=== PATIENT | male | born 1980 | race Caucasian/White ===

== ENCOUNTER 2017-12-07 06:55 | Inpatient (IN) ==
[2017-12-07] MEDS ORDERED: 0.9 % Sodium Chloride 1,000 ML IVC ONE ×2 (07:04→09:42)
[2017-12-07 07:20] LABS: ABG Base Excess -9 mEq/L (-2 to 3); ABG HCO3 27 mEq/L (21-27); ABG Oxygen Saturation 63 % (95-98); ABG PCO2 147 mmHg (35-45); ABG PH 6.88 pH Units (7.32-7.45); ABG PO2 58 mmHg (85-104); ABG TCO2 32 mEq/L (20-26)
[2017-12-07 07:20] LABS: Basophils % 0.2 %; Eosinophils # 0.1 K/mcL (0.0-0.6); Eosinophils % 0.4 %; Hematocrit 41.2 % (37.5-50.1); Hemoglobin 13.1 g/dL (12.9-16.9); Immature Granulocytes % 0.9 % (0-4); Lymphocytes # 9.3 K/mcL (0.6-4.6); Lymphocytes % 54.9 %; Mean Corpuscular HGB Conc 31.8 g/dL (31.6-35.5); Mean Corpuscular Hemoglobin 28.6 pg (28.0-33.3); Monocytes % 5.9 %; Neutrophils # 6.4 K/mcL (1.6-8.9); Platelet Count 264 K/mcL (140-400); Red Blood Count 4.58 M/mcL (4.19-5.50); Red Cell Distribution Width 12.9 % (11.5-14.5); Segmented Neutrophils % 37.7 %
[2017-12-07] MEDS ORDERED: 0.9 % Sodium Chloride 1,000 ML ONE (07:25)
[2017-12-07] MEDS: Norepinephrine 4 MG in D5% in Water 250 ML IVC SCH ×2 (07:30→18:52)
[2017-12-07 07:37] LABS: Alanine Aminotransferase 171 Units/L (7-52); Albumin 3.5 g/dL (3.5-5.7); Albumin/Globulin Ratio 1.2 (1.1-2.2); Alkaline Phosphatase 66 Units/L (34-104); Aspartate Amino Transferase 75 Units/L (13-39); BUN/Creatinine Ratio 12 (6-26); Bilirubin,Direct 0.1 mg/dL (0.0-0.2); Bilirubin,Indirect 0.2 mg/dL (0.0-1.2); Bilirubin,Total 0.3 mg/dL (0.3-1.0); Blood Urea Nitrogen 15 mg/dL (8-23); Calcium 8.9 mg/dL (8.6-10.3); Carbon Dioxide 23 mEq/L (23-29); Chloride 98 mEq/L (98-107); Glucose 264 mg/dL (70-105); INR 1.1; Magnesium 2.8 mg/dL (1.6-2.6); Osmolality,Calculated 298 (280-300); Phosphorous 11.8 mg/dL (2.7-4.5); Potassium 4.9 mEq/L (3.5-5.1); Sodium 139 mEq/L (136-145); Total Protein 6.5 g/dL (6.4-8.9); eGFR For Non-African Americans 51 (> 60)
[2017-12-07 07:39] LABS: Activated Partial Thrombo Time 41.7 Seconds (26.0-36.0)
--- NOTE | 2017-12-07 07:40 | Emergency Department Note ---
Disposition Clinical Impression: Cardiorespiratory arrest, Acidosis, metabolic, Brain edema Disposition: Admitted As Inpatient Condition: Critical General Adult HPI - General Chief complaint: ED Cardiac Arrest/CPR Time Seen by Provider: 12/07/17 07:04 Source: EMS Limitations: other - History of Present Illness Pain Scale: 0 - Related Data Home Medications Medication Instructions Recorded Confirmed No Known Home Drugs 12/07/17 12/07/17 Allergies Allergy/AdvReac Type Severity Reaction Status Date / Time Unable to Assess Allergy Unverified 12/07/17 06:57 Past Medical History - Past Medical History Medical history: Reports: other Psychiatric history: Reports: other - Social History Smoking Status: Unknown if ever smoked Smokeless Tobacco Status: (unknown) Alcohol use: Reports: none Drug use: Reports: IV Drug Use Physical Exam - General Limitations: other General appearance: other Course Vital Signs Respiratory Rate 15 12/07/17 06:55 O2 Sat by Pulse Oximetry 90 12/07/17 06:55 Temperature 93.4 F L 12/07/17 10:58 Pulse Rate 99 12/07/17 10:58 Respiratory Rate 18 12/07/17 11:20 Blood Pressure 113/98 12/07/17 11:20 O2 Sat by Pulse Oximetry 95 12/07/17 11:20 Oxygen Delivery Oxygen Delivery Ventilator Medical Decision Making - Lab Data Result diagrams: 12/07/17 07:08 12/07/17 07:08 Lab Results 12/07/17 12/07/17 12/07/17 Range/Units 07:08 07:08 07:08 WBC 16.9 H (4.3-11.1) K/mcL RBC 4.58 (4.19-5.50) M/mcL Hgb 13.1 (12.9-16.9) g/dL Hct 41.2 (37.5-50.1) % MCV 90.0 (83.0-100.0) fL MCH 28.6 (28.0-33.3) pg MCHC 31.8 (31.6-35.5) g/dL RDW 12.9 (11.5-14.5) % Plt Count 264 (140-400) K/mcL MPV 11.0 (9.4-12.4) fL Immature Gran % 0.9 (0-4) % Seg Neutrophils % 37.7 % Lymphocytes % 54.9 % Monocytes % 5.9 % Eosinophils % 0.4 % Basophils % 0.2 % Neutrophils # 6.4 (1.6-8.9) K/mcL Lymphocytes # 9.3 H (0.6-4.6) K/mcL Monocytes # 1.0 (0.0-1.3) K/mcL Eosinophils # 0.1 (0.0-0.6) K/mcL Basophils # 0.0 (0.0-0.2) K/mcL Reactive Lymphocytes Present A (Not Present) PT 12.0 (9.4-12.1) Seconds INR 1.1 APTT 41.7 H (26.0-36.0) Seconds Sample Site ABG pH (7.32-7.45) pH Units ABG pCO2 (35-45) mmHg ABG pO2 (85-104) mmHg ABG HCO3 (21-27) mEq/L ABG Total CO2 (20-26) mEq/L ABG O2 Saturation (95-98) % ABG Base Excess (-2 to 3) mEq/L Martín Test Respiration Rate O2 Delivery Device Blood Gas Modality Inspired O2 (1-15=lpm ss27-101=%) Tidal Volume cc PEEP cm H2O Sodium 139 (136-145) mEq/L Potassium 4.9 (3.5-5.1) mEq/L Chloride 98 (98-107) mEq/L Carbon Dioxide 23 (23-29) mEq/L BUN 15 (8-23) mg/dL Creatinine 1.26 (0.70-1.30) mg/dL Est GFR ( Amer) > 60 (> 60) Est GFR (Non-Af Amer) 51 L (> 60) BUN/Creatinine Ratio 12 (6-26) Glucose 264 H (70-105) mg/dL Calculated Osmolality 298 (280-300) Lactic Acid (0.5-2.2) mmol/L Calcium 8.9 (8.6-10.3) mg/dL Phosphorus 11.8 H (2.7-4.5) mg/dL Magnesium 2.8 H (1.6-2.6) mg/dL Total Bilirubin 0.3 (0.3-1.0) mg/dL Direct Bilirubin 0.1 (0.0-0.2) mg/dL Indirect Bilirubin 0.2 (0.0-1.2) mg/dL AST 75 H (13-39) Units/L ALT 171 H (7-52) Units/L Alkaline Phosphatase 66 (34-104) Units/L Troponin I 0.36 H* (< 0.04) ng/mL Serum Total Protein 6.5 (6.4-8.9) g/dL Albumin 3.5 (3.5-5.7) g/dL Globulin 3.0 (2.4-3.5) g/dL Albumin/Globulin Ratio 1.2 (1.1-2.2) Urine Color (Yellow) Urine Clarity (Clear) Urine pH (5.0-8.0) pH Units Ur Specific Brandon (1.010-1.025) Urine Protein (Neg-Trace) mg/dL Urine Glucose (UA) (Normal) mg/dL Urine Ketones (Negative) mg/dL Urine Blood (Negative) Urine Nitrite (Negative) Urine Bilirubin (Negative) Urine Urobilinogen (Normal) mg/dL Ur Leukocyte Esterase (Negative) Urine Microscopic RBC (0-3) per hpf Urine Microscopic WBC (0-3) per hpf Ur Squamous Epith Cells (None-Few) per lpf Urine Bacteria (None-Few) per hpf Hyaline Casts (None-Few) per lpf Urine Sperm Salicylates (15.0-30.0) mg/dL Urine Opiates Screen (Fkzkui=086) ng/mL Acetaminophen (10-20) mcg/mL Ur Barbiturates Screen (Toafpz=745) ng/mL Ur Phencyclidine Scrn (Cutoff=25) ng/mL Ur Amphetamines Screen (Taxfqw=4519) ng/mL U Benzodiazepines Scrn (Vzwkdc=878) ng/mL Urine Cocaine Screen (Cutoff= 300) ng/mL U Marijuana (THC) Screen (Cutoff = 50) ng/mL Ur Drug Screen Interp Ethyl Alcohol (Less than 10) mg/dL 12/07/17 12/07/17 12/07/17 Range/Units 07:08 07:14 07:48 WBC (4.3-11.1) K/mcL RBC (4.19-5.50) M/mcL Hgb (12.9-16.9) g/dL Hct (37.5-50.1) % MCV (83.0-100.0) fL MCH (28.0-33.3) pg MCHC (31.6-35.5) g/dL RDW (11.5-14.5) % Plt Count (140-400) K/mcL MPV (9.4-12.4) fL Immature Gran % (0-4) % Seg Neutrophils % % Lymphocytes % % Monocytes % % Eosinophils % % Basophils % % Neutrophils # (1.6-8.9) K/mcL Lymphocytes # (0.6-4.6) K/mcL Monocytes # (0.0-1.3) K/mcL Eosinophils # (0.0-0.6) K/mcL Basophils # (0.0-0.2) K/mcL Reactive Lymphocytes (Not Present) PT (9.4-12.1) Seconds INR APTT (26.0-36.0) Seconds Sample Site L Brach ABG pH 6.88 L* (7.32-7.45) pH Units ABG pCO2 147 H* (35-45) mmHg ABG pO2 58 L (85-104) mmHg ABG HCO3 27 (21-27) mEq/L ABG Total CO2 32 H (20-26) mEq/L ABG O2 Saturation 63 L (95-98) % ABG Base Excess -9 L (-2 to 3) mEq/L Martín Test N/A Respiration Rate O2 Delivery Device Bagging Blood Gas Modality Inspired O2 100.0 (1-15=lpm [id number]=%) Tidal Volume cc PEEP cm H2O Sodium (136-145) mEq/L Potassium (3.5-5.1) mEq/L Chloride (98-107) mEq/L Carbon Dioxide (23-29) mEq/L BUN (8-23) mg/dL Creatinine (0.70-1.30) mg/dL Est GFR ( Amer) (> 60) Est GFR (Non-Af Amer) (> 60) BUN/Creatinine Ratio (6-26) Glucose (70-105) mg/dL Calculated Osmolality (280-300) Lactic Acid > 10.0 H* (0.5-2.2) mmol/L Calcium (8.6-10.3) mg/dL Phosphorus (2.7-4.5) mg/dL Magnesium (1.6-2.6) mg/dL Total Bilirubin (0.3-1.0) mg/dL Direct Bilirubin (0.0-0.2) mg/dL Indirect Bilirubin (0.0-1.2) mg/dL AST (13-39) Units/L ALT (7-52) Units/L Alkaline Phosphatase (34-104) Units/L Troponin I (< 0.04) ng/mL Serum Total Protein (6.4-8.9) g/dL Albumin (3.5-5.7) g/dL Globulin (2.4-3.5) g/dL Albumin/Globulin Ratio (1.1-2.2) Urine Color (Yellow) Urine Clarity (Clear) Urine pH (5.0-8.0) pH Units Ur Specific Brandon (1.010-1.025) Urine Protein (Neg-Trace) mg/dL Urine Glucose (UA) (Normal) mg/dL Urine Ketones (Negative) mg/dL Urine Blood (Negative) Urine Nitrite (Negative) Urine Bilirubin (Negative) Urine Urobilinogen (Normal) mg/dL Ur Leukocyte Esterase (Negative) Urine Microscopic RBC (0-3) per hpf Urine Microscopic WBC (0-3) per hpf Ur Squamous Epith Cells (None-Few) per lpf Urine Bacteria (None-Few) per hpf Hyaline Casts (None-Few) per lpf Urine Sperm Salicylates < 2.5 L (15.0-30.0) mg/dL Urine Opiates Screen (Cseprm=226) ng/mL Acetaminophen < 10 L (10-20) mcg/mL Ur Barbiturates Screen (Roheku=327) ng/mL Ur Phencyclidine Scrn (Cutoff=25) ng/mL Ur Amphetamines Screen (Rqrndj=3845) ng/mL U Benzodiazepines Scrn (Bhbbiv=767) ng/mL Urine Cocaine Screen (Cutoff= 300) ng/mL U Marijuana (THC) Screen (Cutoff = 50) ng/mL Ur Drug Screen Interp Ethyl Alcohol < 10 (Less than 10) mg/dL 12/07/17 12/07/17 12/07/17 Range/Units 08:43 08:52 09:29 WBC (4.3-11.1) K/mcL RBC (4.19-5.50) M/mcL Hgb (12.9-16.9) g/dL Hct (37.5-50.1) % MCV (83.0-100.0) fL MCH (28.0-33.3) pg MCHC (31.6-35.5) g/dL RDW (11.5-14.5) % Plt Count (140-400) K/mcL MPV (9.4-12.4) fL Immature Gran % (0-4) % Seg Neutrophils % % Lymphocytes % % Monocytes % % Eosinophils % % Basophils % % Neutrophils # (1.6-8.9) K/mcL Lymphocytes # (0.6-4.6) K/mcL Monocytes # (0.0-1.3) K/mcL Eosinophils # (0.0-0.6) K/mcL Basophils # (0.0-0.2) K/mcL Reactive Lymphocytes (Not Present) PT (9.4-12.1) Seconds INR APTT (26.0-36.0) Seconds Sample Site L Radial ABG pH 7.31 L D (7.32-7.45) pH Units ABG pCO2 54 H D (35-45) mmHg ABG pO2 64 L (85-104) mmHg ABG HCO3 27 (21-27) mEq/L ABG Total CO2 29 H (20-26) mEq/L ABG O2 Saturation 90 L (95-98) % ABG Base Excess 0 (-2 to 3) mEq/L Martín Test N/A Respiration Rate 20 O2 Delivery Device Adult Vent Blood Gas Modality PRVC Inspired O2 40.0 (1-15=lpm [id number]=%) Tidal Volume 400 cc PEEP 5 cm H2O Sodium (136-145) mEq/L Potassium (3.5-5.1) mEq/L Chloride (98-107) mEq/L Carbon Dioxide (23-29) mEq/L BUN (8-23) mg/dL Creatinine (0.70-1.30) mg/dL Est GFR ( Amer) (> 60) Est GFR (Non-Af Amer) (> 60) BUN/Creatinine Ratio (6-26) Glucose (70-105) mg/dL Calculated Osmolality (280-300) Lactic Acid (0.5-2.2) mmol/L Calcium (8.6-10.3) mg/dL Phosphorus (2.7-4.5) mg/dL Magnesium (1.6-2.6) mg/dL Total Bilirubin (0.3-1.0) mg/dL Direct Bilirubin (0.0-0.2) mg/dL Indirect Bilirubin (0.0-1.2) mg/dL AST (13-39) Units/L ALT (7-52) Units/L Alkaline Phosphatase (34-104) Units/L Troponin I (< 0.04) ng/mL Serum Total Protein (6.4-8.9) g/dL Albumin (3.5-5.7) g/dL Globulin (2.4-3.5) g/dL Albumin/Globulin Ratio (1.1-2.2) Urine Color Yellow (Yellow) Urine Clarity Cloudy A (Clear) Urine pH 7.0 (5.0-8.0) pH Units Ur Specific Brandon 1.017 (1.010-1.025) Urine Protein >=300 H (Neg-Trace) mg/dL Urine Glucose (UA) 100 H (Normal) mg/dL Urine Ketones Negative (Negative) mg/dL Urine Blood Large H (Negative) Urine Nitrite Negative (Negative) Urine Bilirubin Negative (Negative) Urine Urobilinogen Normal (Normal) mg/dL Ur Leukocyte Esterase Negative (Negative) Urine Microscopic RBC 30-50 H (0-3) per hpf Urine Microscopic WBC TNTC H (0-3) per hpf Ur Squamous Epith Cells Many H (None-Few) per lpf Urine Bacteria Few (None-Few) per hpf Hyaline Casts Moderate H (None-Few) per lpf Urine Sperm Present Salicylates (15.0-30.0) mg/dL Urine Opiates Screen Positive H (Mbludm=481) ng/mL Acetaminophen (10-20) mcg/mL Ur Barbiturates Screen Negative (Ddnypx=340) ng/mL Ur Phencyclidine Scrn Negative (Cutoff=25) ng/mL Ur Amphetamines Screen Negative (Qvxokh=5695) ng/mL U Benzodiazepines Scrn Negative (Iajupp=747) ng/mL Urine Cocaine Screen Negative (Cutoff= 300) ng/mL U Marijuana (THC) Screen Negative (Cutoff = 50) ng/mL Ur Drug Screen Interp See Below Ethyl Alcohol (Less than 10) mg/dL Critical Care Time Critical Care Time: Yes Total Critical Care Time: 60 Attestation: Critical care performed: Time is exclusive of separately billable procedures. Time includes: direct patient care, patient reassessment, coordination of patient care, interpretation of data (laboratory data, radiology data, and respiratory data), review of patient's medical records, medical consultation and documentation of patient care. Procedures included in critical care time: Procedures excluded from critical care time: Attestation Statement - Attestation Attestation: I examined this patient and my medical decision-making was reviewed with the Resident Physician. I agree with the documented findings, disposition and treatment plan as described except to the extent set forth below. Patient arrives to the ED in full arrest. Patient was an unwitnessed arrest at work. He was found laying on the floor with a needle in his arm. EMS provides all history. They did not know when he was last seen. He was found unresponsive at 610. Bystander CPR was initiated. They state he was in asystole the entire time. They were a basic crew. Patient received oxygenation by a bag valve mask with an oral airway. CPR by Praveen device. On arrival here CPR was continued. IV access was established. He was intubated. IO was placed in the left tibia by nursing staff. He received one ampule of epinephrine. On pulse check the patient with sinus tach with a pulse. Denies contractility by bedside ultrasound. Stabilization began. Patient receiving IV fluids at this time. He received 30 mics of push dose epinephrine. The Levophed started and currently running at 20. Bicarbonate drip. Initial pH was 6.8. Lactate is greater than 10. Pupils are fixed. At this time we are attempting to establish the patient's identity and notify family. CT is pending. Beginning hypothermia protocol. The rest of his labs are pending as well. Patient has a grim prognosis secondary to his unwitnessed arrest and downtime. Patient's repeat pH is 7.3. DC bicarbonate drip. ICU has been consult and evaluated the patient. Father has also been here. Admitted to ICU. I was present for the entire code and intubation. EKG has diffuse ST depressions. Patient began having several seizure activity prior to transfer to ICU. He was given 2 mg of Ativan. Keppra load ordered. Chest X-Ray 12/07/17 07:04 IMPRESSION: 1. Endotracheal tube tip above the izabela. 2. Enteric tube within the distal stomach. D/ / Kieran Robb MD / Kieran Robb MD Interpreting Provider: Kieran Robb MD Cervical Spine CT 12/07/17 07:34 IMPRESSION: No acute abnormality of the cervical spine. Fluid and debris within the nasopharynx. Soft tissue laceration and subcutaneous air within right chest wall. D/ / Jorge White MD / Jorge White MD Interpreting Provider: Jorge White MD Head CT 12/07/17 07:34 IMPRESSION: Findings could suggest generalized brain edema. Clinical correlation recommended. Findings called to Dr. Guido at 8:46 a.m. December 07, 2017 D/ / Tommy Real / Tommy Real Interpreting Provider: Tommy Real
[2017-12-07 07:41] LABS: Reactive Lymphocytes Present (Not Present)
--- NOTE | 2017-12-07 07:48 | Emergency Department Note ---
Disposition Clinical Impression: Cardiorespiratory arrest, Acidosis, metabolic, Brain edema Disposition: Admitted As Inpatient Condition: Critical Time of Disposition: 09:34 CPR HPI - General Chief Complaint: ED Cardiac Arrest/CPR Time Seen by Provider: 12/07/17 07:04 Source: EMS Limitations: other Nursing Notes Reviewed: Yes Vital Signs Reviewed: Yes - History of Present Illness HPI Narrative: 37yo male presents from work via EMS. Patient was found down in the bathroom at work with a needle in his arm. CPR was started by work personnel at 06:10. Per EMS, patient is a known drug abuser. Patient was placed on a Praveen device. No medications given in route; BLS squad. - Related Data Home Medications Medication Instructions Recorded Confirmed No Known Home Drugs 12/07/17 12/07/17 Allergies Allergy/AdvReac Type Severity Reaction Status Date / Time Unable to Assess Allergy Unverified 12/07/17 06:57 Review of Systems: As Per HPI Limitations: ROS unobtainable due to patients medical condition CPR PMH - Past Medical History Medical history: Reports: other Psychiatric history: Reports: other - Social History Smoking Status: Unknown if ever smoked Alcohol use: Reports: none Drug use: Reports: IV Drug Use Physical Exam Primary survey: Airway: Oral airway in place. Ventilation by bag valve mask. Breathing: Bilateral breath sounds equal. Circulation: Pulseless without CPR. Asystole rhythm. No external hemorrhaging. Disability: GCS 3. Exposure: No abrasions, lacerations, ecchymosis, or hematomas on the patient's scalp or face, trunk, extremities. Pinpoint puncture keys on patient's left UE consistent with IVDA. Secondary survey Vital Signs Reviewed General: Unresponsive, pulseless. HEENT: No facial asymmetry. Head is normocephalic and atraumatic. Pupils fixed, dilated appx 5mm. Nasal turbinates moist and pink without epistaxis. Oral mucosa dry. Dentition intact. Cardiovascular: Heart regular rate and rhythm without clicks, rubs, gallops, or murmurs. No JVD. PMI nondisplaced. Respiratory: Symmetric chest rise with bag valve mask. Abdomen: Abdomen is soft, nondistended. Musculoskeletal: No deformities of extremities. No step-offs or deformities of spinous processes. Neuro: GCS 3 - General Limitations: other General appearance: other Course Course Narrative: Patient arrives with Praveen device. Asystole arrest. Unreliable peripheral line present. IO placed in left tibial tubercle. Patient intubated during first round ACLS during which single dose ACLS epi and 3A bicarb resulted in a tachycardic rhythm with femoral pulses. Subxyphoid bedside cardiac echo with ultrasound showed cardiac contraction, no tamponade, no septal bowing. BP was hypotensive to systolic low 70's. Peripheral IV in BL UE obtained. BP supported by push dose epi while levophed was hung and iteratively increased as needed through a peripheral IV. ABG showed pH 6.87. BiCarb drip initiated. C- collar placed as patient was found down, CT head and C-spine pending. Bedside C XR showed appropriate ET and OG tube placement. Active cooling initiated. Remainder of labwork and imaging pending. EKG dated 12/07/2017 at 07:16 interpreted as sinus rhythm with rate of 74. OR 182, QRS 118, QTC 472. Diffuse ST depression. Incomplete right bundle branch block. No previous EKG for comparison. My attending spoke with patient's mother. She was made aware there was an incident at the patient's work; no additional details given. Mother is going to find transportation to this facility where we can sit and discuss the patient's situation. I discussed the patient with his father who is now bedside. Discussed the known presenting history, actions of resuscitation, CT head results, probable outlook. He left the ED to strip picker the patient's mother. 09:20 Discussed the patient with the . He was able to provide additional information. Patient was purple when found. 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 Patient was having shivering which could have also been seizure like activity. This was resistant to 2mg IV ativan. Loaded with Keppra 1g. Nuclear medicine perfusion brain scan delayed secondary to this movement. Vital Signs Respiratory Rate 15 12/07/17 06:55 O2 Sat by Pulse Oximetry 90 12/07/17 06:55 Temperature 93.4 F L 12/07/17 10:58 Pulse Rate 99 12/07/17 10:58 Respiratory Rate 18 12/07/17 11:20 Blood Pressure 113/98 12/07/17 11:20 O2 Sat by Pulse Oximetry 95 12/07/17 11:20 Oxygen Delivery Oxygen Delivery Ventilator Cardiac Arrest/CPR - Lab Data Result diagrams: 12/07/17 07:08 12/07/17 15:00 Lab Results 12/07/17 12/07/17 12/07/17 Range/Units 07:08 07:08 07:08 WBC 16.9 H (4.3-11.1) K/mcL RBC 4.58 (4.19-5.50) M/mcL Hgb 13.1 (12.9-16.9) g/dL Hct 41.2 (37.5-50.1) % MCV 90.0 (83.0-100.0) fL MCH 28.6 (28.0-33.3) pg MCHC 31.8 (31.6-35.5) g/dL RDW 12.9 (11.5-14.5) % Plt Count 264 (140-400) K/mcL MPV 11.0 (9.4-12.4) fL Immature Gran % 0.9 (0-4) % Seg Neutrophils % 37.7 % Lymphocytes % 54.9 % Monocytes % 5.9 % Eosinophils % 0.4 % Basophils % 0.2 % Neutrophils # 6.4 (1.6-8.9) K/mcL Lymphocytes # 9.3 H (0.6-4.6) K/mcL Monocytes # 1.0 (0.0-1.3) K/mcL Eosinophils # 0.1 (0.0-0.6) K/mcL Basophils # 0.0 (0.0-0.2) K/mcL Reactive Lymphocytes Present A (Not Present) PT 12.0 (9.4-12.1) Seconds INR 1.1 APTT 41.7 H (26.0-36.0) Seconds Sample Site ABG pH (7.32-7.45) pH Units ABG pCO2 (35-45) mmHg ABG pO2 (85-104) mmHg ABG HCO3 (21-27) mEq/L ABG Total CO2 (20-26) mEq/L ABG O2 Saturation (95-98) % ABG Base Excess (-2 to 3) mEq/L Martín Test Respiration Rate O2 Delivery Device Blood Gas Modality Inspired O2 (1-15=lpm [id number]=%) Tidal Volume cc PEEP cm H2O Sodium 139 (136-145) mEq/L Potassium 4.9 (3.5-5.1) mEq/L Chloride 98 (98-107) mEq/L Carbon Dioxide 23 (23-29) mEq/L BUN 15 (8-23) mg/dL Creatinine 1.26 (0.70-1.30) mg/dL Est GFR ( Amer) > 60 (> 60) Est GFR (Non-Af Amer) 51 L (> 60) BUN/Creatinine Ratio 12 (6-26) Glucose 264 H (70-105) mg/dL Calculated Osmolality 298 (280-300) Lactic Acid (0.5-2.2) mmol/L Calcium 8.9 (8.6-10.3) mg/dL Phosphorus 11.8 H (2.7-4.5) mg/dL Magnesium 2.8 H (1.6-2.6) mg/dL Total Bilirubin 0.3 (0.3-1.0) mg/dL Direct Bilirubin 0.1 (0.0-0.2) mg/dL Indirect Bilirubin 0.2 (0.0-1.2) mg/dL AST 75 H (13-39) Units/L ALT 171 H (7-52) Units/L Alkaline Phosphatase 66 (34-104) Units/L Troponin I 0.36 H* (< 0.04) ng/mL Serum Total Protein 6.5 (6.4-8.9) g/dL Albumin 3.5 (3.5-5.7) g/dL Globulin 3.0 (2.4-3.5) g/dL Albumin/Globulin Ratio 1.2 (1.1-2.2) Urine Color (Yellow) Urine Clarity (Clear) Urine pH (5.0-8.0) pH Units Ur Specific Upton (1.010-1.025) Urine Protein (Neg-Trace) mg/dL Urine Glucose (UA) (Normal) mg/dL Urine Ketones (Negative) mg/dL Urine Blood (Negative) Urine Nitrite (Negative) Urine Bilirubin (Negative) Urine Urobilinogen (Normal) mg/dL Ur Leukocyte Esterase (Negative) Urine Microscopic RBC (0-3) per hpf Urine Microscopic WBC (0-3) per hpf Ur Squamous Epith Cells (None-Few) per lpf Urine Bacteria (None-Few) per hpf Hyaline Casts (None-Few) per lpf Urine Sperm Salicylates (15.0-30.0) mg/dL Urine Opiates Screen (Thjmmi=641) ng/mL Acetaminophen (10-20) mcg/mL Ur Barbiturates Screen (Pczifh=775) ng/mL Ur Phencyclidine Scrn (Cutoff=25) ng/mL Ur Amphetamines Screen (Qzsfpa=1678) ng/mL U Benzodiazepines Scrn (Ctltsb=384) ng/mL Urine Cocaine Screen (Cutoff= 300) ng/mL U Marijuana (THC) Screen (Cutoff = 50) ng/mL Ur Drug Screen Interp Ethyl Alcohol (Less than 10) mg/dL 12/07/17 12/07/17 12/07/17 Range/Units 07:08 07:14 07:48 WBC (4.3-11.1) K/mcL RBC (4.19-5.50) M/mcL Hgb (12.9-16.9) g/dL Hct (37.5-50.1) % MCV (83.0-100.0) fL MCH (28.0-33.3) pg MCHC (31.6-35.5) g/dL RDW (11.5-14.5) % Plt Count (140-400) K/mcL MPV (9.4-12.4) fL Immature Gran % (0-4) % Seg Neutrophils % % Lymphocytes % % Monocytes % % Eosinophils % % Basophils % % Neutrophils # (1.6-8.9) K/mcL Lymphocytes # (0.6-4.6) K/mcL Monocytes # (0.0-1.3) K/mcL Eosinophils # (0.0-0.6) K/mcL Basophils # (0.0-0.2) K/mcL Reactive Lymphocytes (Not Present) PT (9.4-12.1) Seconds INR APTT (26.0-36.0) Seconds Sample Site L Brach ABG pH 6.88 L* (7.32-7.45) pH Units ABG pCO2 147 H* (35-45) mmHg ABG pO2 58 L (85-104) mmHg ABG HCO3 27 (21-27) mEq/L ABG Total CO2 32 H (20-26) mEq/L ABG O2 Saturation 63 L (95-98) % ABG Base Excess -9 L (-2 to 3) mEq/L Martín Test N/A Respiration Rate O2 Delivery Device Bagging Blood Gas Modality Inspired O2 100.0 (1-15=lpm [id number]=%) Tidal Volume cc PEEP cm H2O Sodium (136-145) mEq/L Potassium (3.5-5.1) mEq/L Chloride (98-107) mEq/L Carbon Dioxide (23-29) mEq/L BUN (8-23) mg/dL Creatinine (0.70-1.30) mg/dL Est GFR ( Amer) (> 60) Est GFR (Non-Af Amer) (> 60) BUN/Creatinine Ratio (6-26) Glucose (70-105) mg/dL Calculated Osmolality (280-300) Lactic Acid > 10.0 H* (0.5-2.2) mmol/L Calcium (8.6-10.3) mg/dL Phosphorus (2.7-4.5) mg/dL Magnesium (1.6-2.6) mg/dL Total Bilirubin (0.3-1.0) mg/dL Direct Bilirubin (0.0-0.2) mg/dL Indirect Bilirubin (0.0-1.2) mg/dL AST (13-39) Units/L ALT (7-52) Units/L Alkaline Phosphatase (34-104) Units/L Troponin I (< 0.04) ng/mL Serum Total Protein (6.4-8.9) g/dL Albumin (3.5-5.7) g/dL Globulin (2.4-3.5) g/dL Albumin/Globulin Ratio (1.1-2.2) Urine Color (Yellow) Urine Clarity (Clear) Urine pH (5.0-8.0) pH Units Ur Specific Upton (1.010-1.025) Urine Protein (Neg-Trace) mg/dL Urine Glucose (UA) (Normal) mg/dL Urine Ketones (Negative) mg/dL Urine Blood (Negative) Urine Nitrite (Negative) Urine Bilirubin (Negative) Urine Urobilinogen (Normal) mg/dL Ur Leukocyte Esterase (Negative) Urine Microscopic RBC (0-3) per hpf Urine Microscopic WBC (0-3) per hpf Ur Squamous Epith Cells (None-Few) per lpf Urine Bacteria (None-Few) per hpf Hyaline Casts (None-Few) per lpf Urine Sperm Salicylates < 2.5 L (15.0-30.0) mg/dL Urine Opiates Screen (Khpxsk=712) ng/mL Acetaminophen < 10 L (10-20) mcg/mL Ur Barbiturates Screen (Mfytgt=223) ng/mL Ur Phencyclidine Scrn (Cutoff=25) ng/mL Ur Amphetamines Screen (Nnezqh=9506) ng/mL U Benzodiazepines Scrn (Ydzgks=073) ng/mL Urine Cocaine Screen (Cutoff= 300) ng/mL U Marijuana (THC) Screen (Cutoff = 50) ng/mL Ur Drug Screen Interp Ethyl Alcohol < 10 (Less than 10) mg/dL 12/07/17 12/07/17 12/07/17 Range/Units 08:43 08:52 09:29 WBC (4.3-11.1) K/mcL RBC (4.19-5.50) M/mcL Hgb (12.9-16.9) g/dL Hct (37.5-50.1) % MCV (83.0-100.0) fL MCH (28.0-33.3) pg MCHC (31.6-35.5) g/dL RDW (11.5-14.5) % Plt Count (140-400) K/mcL MPV (9.4-12.4) fL Immature Gran % (0-4) % Seg Neutrophils % % Lymphocytes % % Monocytes % % Eosinophils % % Basophils % % Neutrophils # (1.6-8.9) K/mcL Lymphocytes # (0.6-4.6) K/mcL Monocytes # (0.0-1.3) K/mcL Eosinophils # (0.0-0.6) K/mcL Basophils # (0.0-0.2) K/mcL Reactive Lymphocytes (Not Present) PT (9.4-12.1) Seconds INR APTT (26.0-36.0) Seconds Sample Site L Radial ABG pH 7.31 L D (7.32-7.45) pH Units ABG pCO2 54 H D (35-45) mmHg ABG pO2 64 L (85-104) mmHg ABG HCO3 27 (21-27) mEq/L ABG Total CO2 29 H (20-26) mEq/L ABG O2 Saturation 90 L (95-98) % ABG Base Excess 0 (-2 to 3) mEq/L Martín Test N/A Respiration Rate 20 O2 Delivery Device Adult Vent Blood Gas Modality PRVC Inspired O2 40.0 (1-15=lpm [id number]=%) Tidal Volume 400 cc PEEP 5 cm H2O Sodium (136-145) mEq/L Potassium (3.5-5.1) mEq/L Chloride (98-107) mEq/L Carbon Dioxide (23-29) mEq/L BUN (8-23) mg/dL Creatinine (0.70-1.30) mg/dL Est GFR ( Amer) (> 60) Est GFR (Non-Af Amer) (> 60) BUN/Creatinine Ratio (6-26) Glucose (70-105) mg/dL Calculated Osmolality (280-300) Lactic Acid (0.5-2.2) mmol/L Calcium (8.6-10.3) mg/dL Phosphorus (2.7-4.5) mg/dL Magnesium (1.6-2.6) mg/dL Total Bilirubin (0.3-1.0) mg/dL Direct Bilirubin (0.0-0.2) mg/dL Indirect Bilirubin (0.0-1.2) mg/dL AST (13-39) Units/L ALT (7-52) Units/L Alkaline Phosphatase (34-104) Units/L Troponin I (< 0.04) ng/mL Serum Total Protein (6.4-8.9) g/dL Albumin (3.5-5.7) g/dL Globulin (2.4-3.5) g/dL Albumin/Globulin Ratio (1.1-2.2) Urine Color Yellow (Yellow) Urine Clarity Cloudy A (Clear) Urine pH 7.0 (5.0-8.0) pH Units Ur Specific Upton 1.017 (1.010-1.025) Urine Protein >=300 H (Neg-Trace) mg/dL Urine Glucose (UA) 100 H (Normal) mg/dL Urine Ketones Negative (Negative) mg/dL Urine Blood Large H (Negative) Urine Nitrite Negative (Negative) Urine Bilirubin Negative (Negative) Urine Urobilinogen Normal (Normal) mg/dL Ur Leukocyte Esterase Negative (Negative) Urine Microscopic RBC 30-50 H (0-3) per hpf Urine Microscopic WBC TNTC H (0-3) per hpf Ur Squamous Epith Cells Many H (None-Few) per lpf Urine Bacteria Few (None-Few) per hpf Hyaline Casts Moderate H (None-Few) per lpf Urine Sperm Present Salicylates (15.0-30.0) mg/dL Urine Opiates Screen Positive H (Tfygkc=366) ng/mL Acetaminophen (10-20) mcg/mL Ur Barbiturates Screen Negative (Xcdogu=448) ng/mL Ur Phencyclidine Scrn Negative (Cutoff=25) ng/mL Ur Amphetamines Screen Negative (Kcuhzt=0752) ng/mL U Benzodiazepines Scrn Negative (Tjrfpg=490) ng/mL Urine Cocaine Screen Negative (Cutoff= 300) ng/mL U Marijuana (THC) Screen Negative (Cutoff = 50) ng/mL Ur Drug Screen Interp See Below Ethyl Alcohol (Less than 10) mg/dL
--- NOTE | 2017-12-07 08:11 | Emergency Department Note ---
START Narrative - START START: Procedure Note: Endotracheal Intubation Date: 12/07/17 Time: 07:15 Indication: Respiratory failure/full code Resident: Dr. Ryan Copeland Attending: Dr. Cooper See Emergent indication due to full CODE. The patient was placed on a surveillance monitor including continuous pulse oximetry. No sedation medications used. Using a CMAC laryngoscope and a size 7.5 endotracheal tube with stylet, the patient was intubated on the 3rd attempt; difficult view due oral secretions on first two attemps and switched from CMAC to D blade, used BVM inbetween The stylet was removed and cuff balloon was inflated. Appropriate endotracheal tube position was confirmed by direct visualization of vocal cord passage, fogging of the tube, CO2 colometric indicator and symmetric breath sounds. The tube was secured at 22 cm at the lips. Post intubation chest x-ray is pending at this time.
[2017-12-07 08:14] LABS: Troponin I 0.36 ng/mL (< 0.04)
[2017-12-07 08:43] LABS: Acetaminophen < 10 mcg/mL (10-20); Ethanol < 10 mg/dL (Less than 10); Salicylate < 2.5 mg/dL (15.0-30.0)
[2017-12-07] MEDS: Sodium Bicarbonate 150 MEQ in D5% in Water 1,000 ML IVC SCH (09:00)
[2017-12-07 09:07] LABS: Bilirubin,Urine Negative (Negative); Blood,Urine Large (Negative); Clarity,Urine Cloudy (Clear); Color,Urine Yellow (Yellow); Glucose,Urine (UA) 100 mg/dL (Normal); Ketones,Urine Negative (Negative); Leukocyte Esterase,Urine Negative (Negative); Nitrite,Urine Negative (Negative); Protein,Urine >=300 mg/dL (Neg-Trace); Specific Gravity,Urine 1.017 (1.010-1.025); Urobilinogen,Urine Normal (Normal)
[2017-12-07 09:09] LABS: Bacteria,Urine Few per hpf (None-Few); Hyaline Casts,Urine Moderate per lpf (None-Few); RBC,Urine 30-50 per hpf (0-3); Squamous Epithelial Cell,Urine Many per lpf (None-Few); WBC,Urine TNTC per hpf (0-3)
[2017-12-07 09:19] LABS: Amphetamine Screen,Urine Negative ng/mL (Cutoff=1000); Barbiturate Screen,Urine Negative ng/mL (Cutoff=200); Benzodiazepines Screen,Urine Negative ng/mL (Cutoff=200); Cannabinoid Screen,Urine Negative ng/mL (Cutoff = 50); Cocaine Screen,Urine Negative ng/mL (Cutoff= 300); Opiate Screen,Urine Positive ng/mL (Cutoff=300); Phencyclidine Screen,Urine Negative ng/mL (Cutoff=25)
[2017-12-07 09:23] LABS: Sperm,Urine Present
[2017-12-07 09:35] LABS: ABG Base Excess 0 mEq/L (-2 to 3); ABG HCO3 27 mEq/L (21-27); ABG Oxygen Saturation 90 % (95-98); ABG PCO2 54 mmHg (35-45); ABG PH 7.31 pH Units (7.32-7.45); ABG PO2 64 mmHg (85-104); ABG TCO2 29 mEq/L (20-26); Blood Gas Modality PRVC; Blood Gas PEEP 5 cm H2O; Blood Gas Respiration Rate 20; Blood Gas VT 400 cc
[2017-12-07] MEDS: 0.9 % Sodium Chloride 1,000 ML IVC SCH ×3 (09:44→23:06)
[2017-12-07] MEDS ORDERED: *HR* LORazepam 2 MG/ML VIAL IVP ONE (09:48)
[2017-12-07] MEDS ORDERED: *HR* LORazepam 2 MG/ML VIAL ONE (09:51)
--- NOTE | 2017-12-07 09:53 | Pulmonology History & Physical ---
<Zaida Ma M - Last Filed: 12/07/17 11:07> History of Present Illness HPI: Mr. Torrez is a 37 year old male Medications and Allergies No Known Home Drugs 12/07/17 [History] Allergy/AdvReac Type Severity Reaction Status Date / Time Unable to Assess Allergy Unverified 12/07/17 06:57 All Systems: The remainder of the systems were reviewed and are negative Physical Examination Vital Signs: Vital Signs, Last 4 Hours Temp Pulse Resp BP Pulse Ox Pulse Ox Pulse Ox 12/07/17 11:01 18 95 12/07/17 10:57 20 113/98 12/07/17 10:45 101 20 80/59 94 12/07/17 10:30 100 20 103/57 94 12/07/17 10:15 98 20 143/99 92 12/07/17 10:00 98 20 152/108 95 12/07/17 09:45 102 20 99/54 94 12/07/17 09:35 20 92 12/07/17 09:30 92.5 F L 99 20 101/76 92 12/07/17 09:15 99 20 142/90 91 12/07/17 09:00 100 20 124/70 93 12/07/17 08:45 99 20 120/70 93 12/07/17 08:44 94 12/07/17 08:30 99 20 117/51 93 12/07/17 08:25 98 20 117/51 92 12/07/17 08:20 98 20 122/60 94 12/07/17 08:15 98 20 130/59 98 12/07/17 08:10 89 20 119/78 93 12/07/17 08:05 98 20 118/54 97 12/07/17 08:00 89 20 108/60 97 12/07/17 07:45 90 20 94 12/07/17 07:30 86 20 94/44 98 12/07/17 07:24 0 0 Pulse Ox Pulse Ox Pulse Ox Pulse Ox 12/07/17 11:01 12/07/17 10:57 12/07/17 10:45 12/07/17 10:30 12/07/17 10:15 12/07/17 10:00 12/07/17 09:45 12/07/17 09:35 12/07/17 09:30 12/07/17 09:15 10/20/18 09:00 12/07/17 08:45 12/07/17 08:44 12/07/17 08:30 12/07/17 08:25 12/07/17 08:20 12/07/17 08:15 12/07/17 08:10 12/07/17 08:05 12/07/17 08:00 12/07/17 07:45 12/07/17 07:30 12/07/17 07:24 60 98 100 99 Results - Laboratory Findings CBC and BMP: 12/07/17 07:08 12/07/17 07:08 ABG ABG pH 7.31 pH Units (7.32-7.45) L D 12/07/17 09:29 ABG pCO2 54 mmHg (35-45) H D 12/07/17 09:29 ABG pO2 64 mmHg (85-104) L 12/07/17 09:29 ABG O2 Saturation 90 % (95-98) L 12/07/17 09:29 PT/INR, D-dimer PT 12.0 Seconds (9.4-12.1) 12/07/17 07:08 Abnormal lab findings: Abnormal lab results WBC 16.9 K/mcL (4.3-11.1) H 12/07/17 07:08 Lymphocytes # 9.3 K/mcL (0.6-4.6) H 12/07/17 07:08 Reactive Lymphocytes Present (Not Present) A 12/07/17 07:08 APTT 41.7 Seconds (26.0-36.0) H 12/07/17 07:08 ABG pH 7.31 pH Units (7.32-7.45) L D 12/07/17 09:29 ABG pCO2 54 mmHg (35-45) H D 12/07/17 09:29 ABG pO2 64 mmHg (85-104) L 12/07/17 09:29 ABG Total CO2 29 mEq/L (20-26) H 12/07/17 09:29 ABG O2 Saturation 90 % (95-98) L 12/07/17 09:29 Est GFR (Non-Af Amer) 51 (> 60) L 12/07/17 07:08 Glucose 264 mg/dL (70-105) H 12/07/17 07:08 Lactic Acid > 10.0 mmol/L (0.5-2.2) H* 12/07/17 07:08 Phosphorus 11.8 mg/dL (2.7-4.5) H 12/07/17 07:08 Magnesium 2.8 mg/dL (1.6-2.6) H 12/07/17 07:08 AST 75 Units/L (13-39) H 12/07/17 07:08 ALT 171 Units/L (7-52) H 12/07/17 07:08 Troponin I 0.36 ng/mL (< 0.04) H* 12/07/17 07:08 Urine Clarity Cloudy (Clear) A 12/07/17 08:52 Urine Protein >=300 mg/dL (Neg-Trace) H 12/07/17 08:52 Urine Glucose (UA) 100 mg/dL (Normal) H 12/07/17 08:52 Urine Blood Large (Negative) H 12/07/17 08:52 Urine Microscopic RBC 30-50 per hpf (0-3) H 12/07/17 08:52 Urine Microscopic WBC TNTC per hpf (0-3) H 12/07/17 08:52 Ur Squamous Epith Cells Many per lpf (None-Few) H 12/07/17 08:52 Hyaline Casts Moderate per lpf (None-Few) H 12/07/17 08:52 Salicylates < 2.5 mg/dL (15.0-30.0) L 12/07/17 07:48 Urine Opiates Screen Positive ng/mL ([id number]) H 12/07/17 08:43 Acetaminophen < 10 mcg/mL (10-20) L 12/07/17 07:48 - Attending Attestation I examined this patient and my medical decision-making was reviewed with the Resident Physician. I agree with the documented findings, disposition and treatment plan as described except to the extent set forth below. Patient seen and examined. Labs, radiology, chart personally reviewed. I was called by emergency room physician regarding this patient and patient was evaluated in the emergency room. 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 Caloric testing was done with cold ice with no response. Unfortunately patient is in stable for apnea test, a quick spontaneou s breathing trial was done and patient is apneic. This is all suggestive post cardiac arrest neurological changes and prognosis is very poor with evidence of suspect brain and to confirm that nuclear brain perfusion flow has been ordered and neurology consultation. Patient may need mannitol. Pulmonary: Patient with evidence of combined metabolic and respiratory acidosis and I have made some changes on the ventilator. Cardiovascular: Post cardiac arrest shock and patient is on vasopressor. GI: Nutrition per dietary and GI prophylaxis per routine Heme: DVT prophylaxis per routine Renal; urine out put and renal funtion reviewed. Suspect there is intravascular volume depletion and continue volume resuscitation and since there is correction partially open his acid base to discontinue further bicarbonate. Endorcine: blood glucose is monitored Lines: all lines checked and no evidence of infections Skin: skin care to prevent pressure ulcers per nursing routine care Prognosis is extremely poor and family is aware. Staff to notify organ donation team. I spent 45 min of Critical Care time with this patient. It involved decision making of high complexity to assess, manipulate, and support vital organ system failure and/or to prevent further life threatening deterioration of the patient's condition. The time involved in the performance of separately reportable procedures was not counted toward critical care time. <Ryan Mckeon R - Last Filed: 12/07/17 14:20> Date of Encounter: 12/07/17 Time of Encounter: 09:48 Assessment and Plan (1) Brain edema Current visit: Yes Status: Acute Patient remains unresponsive to verbal commands and pain stimuli. Patient is intubated and ventilated without sedation. Brainstem reflexes tested and absent. Head CT with findings consistent with generalized brain edema, loss of fraga- white differentiation, generalized swelling with small ventricles and sulci. Patient was found unresponsive at place of work with a needle in his arm, patient was unresponsive, and in asystole by BLS examination. Estimated down time prior to bystander initiated CPR is 15-20 minutes. Due to physical exam and imaging findings patient prognosis for meaningful neurologic recovery is poor. Will stop cooling protocol and begin rewarming patient Patient has not been given paralytic by the ED. Severe anoxic brain injury in this patient is likely, will obtain nuclear medicine brain perfusion study with further recommendations pending findings. Consult to neurology, have spoken with Dr. Sol. Will obtain EEG per recommendation. Will consider contacting [facility] for possible organ donation pending imaging and clinical findings. (2) Cardiorespiratory arrest Current visit: Yes Status: Acute Patient was found unresponsive and bystander CPR was initiated. Downtime estimated to be 15-20 minutes. Patient was transported by [facility] EMS crew with Praveen device for CPR. Patient was intubated in the ED and given 1 amp of epinephrine. Subsequently patient was found to be in sinus tachycardia. Cooling protocol was initiated by the ED. This was subsequently stopped for rewarming when CT had demonstrated diffuse cerebral edema. At present patient is requiring ventilation as well as levophed vasopressor support. Bicarbonate drip has been stopped will initiate IV fluid resuscitation for organ perfusion, continue aggressive supportive measures at this time. (3) Hypotension Current visit: Yes Status: Acute Patient with persistent hypotension in the setting of recent cardiopulmonary arrest and resuscitation. Patient is receiving fluid resuscitation as well as requiring vasopressor support with Levophed. We will continue the vasopressor support as necessary to maintain map of greater than 65 for organ perfusion. We will continue IV fluids at this time, suspect patient is hypovolemic. Qualifiers: Hypotension type: unspecified hypotension type Qualified Code(s): I95.9 - Hypotension, unspecified (4) Acidosis, metabolic Current visit: Yes Status: Acute Patient with metabolic acidosis at presentation secondary to lactic acidosis due to cardiopulmonary arrest. ABG revealed pH of 6.88 as well as a lactate of greater than 10 and an anion gap of 18. Bicarbonate drip was started by the ED. PH by ABG is improving most recently 7.31. Have discontinued sodium bicarbonate infusion at this time. We will continue ventilation and fluid resuscitation for adequate oxygenation and organ perfusion (5) DVT prophylaxis Current visit: Yes Status: Acute Will initiate mechanical prophylaxis with bilateral SCDs History of Present Illness Chief complaint: Unresponsive HPI: Mr. Torrez is a 37 year old male with a history of intravenous drug abuse. The patient was seen and evaluated at the bedside in the ED. History was obtained from the chart and staff, no family present at the time of this evaluation. Patient was found in bathroom at his place of work this morning with a needle in his arm. He was unresponsive and found at approximately 6:10 AM. Bystander CPR was initiated until a S crew arrived for transport. Patient did receive CPR by Praveen device with respiratory support via oral airway and bag valve mask. Patient was in asystole throughout his transport. Patient was given epinephrine after presenting to the emergency department. Subsequently patient was found to be in sinus tach. Patient was intubated in the emergency department without sedation. Labs revealed a lactate of greater than 10 and initial pH of 6.8. Urine drug screen was obtained and found to be positive for urine opiates. CT head with findings consistent with diffuse cerebral edema. Patient was started on hypothermia protocol in the ED, this has now been stopped and will begin rewarming patient. Past Med Surg Social Fam HX - Past Medical History Medical history: other Additional medical history: unknown Psychiatric history: other - Past Surgical History Additional surgical history: unknown - Social History Smoking Status: Unknown if ever smoked Smokeless Tobacco Status: (unknown) Alcohol use: none Drug use: IV Drug Use ROS unobtainable: due to endotracheal tube, due to mental status All Systems: The remainder of the systems were reviewed and are negative Physical Examination Vital Signs: Vital Signs, Last 4 Hours Temp Pulse Resp BP Pulse Ox Pulse Ox Pulse Ox 12/07/17 09:35 20 92 12/07/17 09:30 92.5 F L 99 20 101/76 92 12/07/17 09:15 99 20 142/90 91 12/07/17 09:00 100 20 124/70 93 12/07/17 08:45 99 20 120/70 93 12/07/17 08:44 94 12/07/17 08:30 99 20 117/51 93 12/07/17 08:25 98 20 117/51 92 12/07/17 08:20 98 20 122/60 94 12/07/17 08:15 98 20 130/59 98 12/07/17 08:10 89 20 119/78 93 12/07/17 08:05 98 20 118/54 97 12/07/17 08:00 89 20 108/60 97 12/07/17 07:45 90 20 94 12/07/17 07:30 86 20 94/44 98 12/07/17 07:24 0 0 12/07/17 06:57 0 F L 0 0 0/0 0 12/07/17 06:55 15 90 Pulse Ox Pulse Ox Pulse Ox Pulse Ox 12/07/17 09:35 12/07/17 09:30 12/07/17 09:15 12/07/17 09:00 12/07/17 08:45 12/07/17 08:44 12/07/17 08:30 12/07/17 08:25 12/07/17 08:20 12/07/17 08:15 12/07/17 08:10 12/07/17 08:05 12/07/17 08:00 12/07/17 07:45 12/07/17 07:30 12/07/17 07:24 60 98 100 99 12/07/17 06:57 12/07/17 06:55 General appearance: other (Unresponsive) Eyes: nonicteric ENT: oropharynx moist, other (Endotracheal tube in place) Neck: supple, no lymphadenopathy Effort: other (Ventilated) Inspection: normal Auscultation: bilateral: clear Percussion: bilateral: not dull Cardiovascular: other (Tachycardic with regular rhythm) Gastrointestinal: absent bowel sounds, soft, non-distended Integumentary: normal Extremities: no cyanosis, no edema, no clubbing, cool Musculoskeletal: no deformities Gait: normal posture unable to assess due to mental status, other (Pupils are fixed and dilated. Brain stem reflexes absent with no cough, corneal, or caloric reflex noted.) other (Unable to assess due to mental status) Results - Laboratory Findings CBC and BMP: 12/07/17 07:08 12/07/17 07:08 ABG ABG pH 7.31 pH Units (7.32-7.45) L D 12/07/17 09:29 ABG pCO2 54 mmHg (35-45) H D 12/07/17 09:29 ABG pO2 64 mmHg (85-104) L 12/07/17 09:29 ABG O2 Saturation 90 % (95-98) L 12/07/17 09:29 PT/INR, D-dimer PT 12.0 Seconds (9.4-12.1) 12/07/17 07:08 Abnormal lab findings: Abnormal lab results WBC 16.9 K/mcL (4.3-11.1) H 12/07/17 07:08 Lymphocytes # 9.3 K/mcL (0.6-4.6) H 12/07/17 07:08 Reactive Lymphocytes Present (Not Present) A 12/07/17 07:08 APTT 41.7 Seconds (26.0-36.0) H 12/07/17 07:08 ABG pH 7.31 pH Units (7.32-7.45) L D 12/07/17 09:29 ABG pCO2 54 mmHg (35-45) H D 12/07/17 09:29 ABG pO2 64 mmHg (85-104) L 12/07/17 09:29 ABG Total CO2 29 mEq/L (20-26) H 12/07/17 09:29 ABG O2 Saturation 90 % (95-98) L 12/07/17 09:29 Est GFR (Non-Af Amer) 51 (> 60) L 12/07/17 07:08 Glucose 264 mg/dL (70-105) H 12/07/17 07:08 Lactic Acid > 10.0 mmol/L (0.5-2.2) H* 12/07/17 07:08 Phosphorus 11.8 mg/dL (2.7-4.5) H 12/07/17 07:08 Magnesium 2.8 mg/dL (1.6-2.6) H 12/07/17 07:08 AST 75 Units/L (13-39) H 12/07/17 07:08 ALT 171 Units/L (7-52) H 12/07/17 07:08 Troponin I 0.36 ng/mL (< 0.04) H* 12/07/17 07:08 Urine Clarity Cloudy (Clear) A 12/07/17 08:52 Urine Protein >=300 mg/dL (Neg-Trace) H 12/07/17 08:52 Urine Glucose (UA) 100 mg/dL (Normal) H 12/07/17 08:52 Urine Blood Large (Negative) H 12/07/17 08:52 Urine Microscopic RBC 30-50 per hpf (0-3) H 12/07/17 08:52 Urine Microscopic WBC TNTC per hpf (0-3) H 12/07/17 08:52 Ur Squamous Epith Cells Many per lpf (None-Few) H 12/07/17 08:52 Hyaline Casts Moderate per lpf (None-Few) H 12/07/17 08:52 Salicylates < 2.5 mg/dL (15.0-30.0) L 12/07/17 07:48 Urine Opiates Screen Positive ng/mL ([id number]) H 12/07/17 08:43 Acetaminophen < 10 mcg/mL (10-20) L 12/07/17 07:48
[2017-12-07] MEDS ORDERED: levETIRAcetam 1,000 MG in 0.9 % Sodium Chloride 100 ML IVPB ONE (10:00)
[2017-12-07] MEDS ORDERED: Mannitol 25% vial 12.5 GM/50 ML VIAL IVP ONE (11:31)
[2017-12-07] MEDS ORDERED: Artificial Tears SOLN 15 ML BOTTLE BOTH EYES PRN (11:47)
[2017-12-07] MEDS ORDERED: Naloxone 0.4 MG/ML INJ IVP PRN (11:54)
[2017-12-07] MEDS ORDERED: MANNITOL IVPB ONE (12:00)
--- NOTE | 2017-12-07 13:06 | Procedure Note ---
<Zaida Ma - Last Filed: 12/07/17 13:14> Date of procedure: 12/07/17 Procedure: I examined this patient and my medical decision-making was reviewed with the Resident Physician. I agree with the documented findings, disposition and treatment plan as described except to the extent set forth below. I have personally supervised and assist resident placing central line without immediate complications <Ryan Mckeon - Last Filed: 12/07/17 14:03> Pre-op diagnosis: Hypotension Post-op diagnosis: same Procedure: A timeout was completed verifying correct patient, procedure, site, positioning and equipment. The patient was placed in a dependent position appropriate for central venous catheter placement based on the site to be cannulated, in this instance the right femoral vein. The patient's groin was prepped and draped in sterile fashion. The vein was cannulated with an introducer needle under ultrasound guidance. A guidewire was inserted into the right femoral vein without resistance, appropriate placement was visualized and confirmed by ultrasound. A 3 mm skin neck was made and the dilator was introduced over the guidewire. After dilation a triple-lumen 7-Lao central venous catheter was introduced over the guidewire via the Seldinger technique into the right femoral vein. Appropriate blood was returned and each of the catheter lumens were flushed with sterile saline. The catheter was secured into place with sutures and a sterile dressing was applied. Perfusion to the extremity distal to the point of catheter insertion was checked and found to be adequate. Dr. Ma was present for the entire procedure. Anesthesia: IV sedation Surgeon: Ryan Mckeon Was there an assistant golf professional present: Yes Parachute Rigger: Zaida Ma Estimated blood loss (cc): 10 Specimen: none Pathology: none sent Condition: critical Disposition: ICU
[2017-12-07] MEDS: Artificial Tears SOLN 15 ML BOTTLE BOTH EYES SCH ×4 (14:50→23:04)
[2017-12-07] MEDS ORDERED: Valproic Acid INJ 800 MG in 0.9 % Sodium Chloride 100 ML IVPB SCH (16:00)
[2017-12-07 16:26] LABS: BUN/Creatinine Ratio 16 (6-26); Blood Urea Nitrogen 22 mg/dL (6-20); Calcium 8.6 mg/dL (8.6-10.3); Carbon Dioxide 30 mEq/L (23-29); Chloride 104 mEq/L (98-107); Glucose 142 mg/dL (70-105); Osmolality,Calculated 296 (280-300); Potassium 3.9 mEq/L (3.5-5.1); Sodium 140 mEq/L (136-145); eGFR For Non-African Americans 58 (> 60)
--- NOTE | 2017-12-07 18:48 | Neurology - Consult Note ---
Date of Encounter: 12/07/17 Time of Encounter: 17:48 Assessment and Plan (1) Anoxic brain injury Current Visit: Yes Status: Acute This patient who seemed to have suffered cardiopulmonary arrest perhaps due to drug overdose?? CT scan shows significant cerebral edema as commonly seen with severe anoxic injury. On neurological examination patient do not have any brainstem reflexes EEG also did not show any seizure activity and seems to be consistent with electrocerebral silence that could be seen in the patient with severe anoxic brain injury. As it is less than 12 hours I would recommend we should give another 12 hours to see if there is any changes in his overall neurological status at the same time recommend doing brain flow studies to see if there is any evidence of cerebral circulation. Considering overall presentation and neurological examination patient prognosis is grave Discussed with the mother and family who is present at the bedside explained in detail and all understand, acknowledges and agrees with the plan History of Present Illness HPI: Mr. Torrez is a 37 year old male with a history of intravenous drug abuse in past , brought in by EMS, he was found in bathroom at his place of work this morning with a needle in his arm. He was unresponsive, Bystander CPR was initiated until a BLS crew arrived for transport. Patient did receive CPR , Pt was in asystole throughout the transport. Patient was given epinephrine in ER Subsequently patient was found to be in sinus tach. Patient was intubated in the emergency department without sedation. Labs revealed a lactate of greater than 10 and initial pH of 6.8. Urine drug screen was positive for opiates. CT head consistent with diffuse cerebral edema. Patient was started on hypothermia protocol in the ED, Patient is intubated and ventilated without sedation. Brainstem reflexes were absent at presentation, Patient remain intubated and is without sedation for the past several hours Past Med Surg Social Fam HX - Past Medical History Medical history: other Additional medical history: unknown Psychiatric history: other - Past Surgical History Additional surgical history: unknown - Social History Smoking Status: Unknown if ever smoked Smokeless Tobacco Status: (unknown) Alcohol use: none Drug use: IV Drug Use Medications and Allergies No Known Home Drugs 12/07/17 [History] Allergy/AdvReac Type Severity Reaction Status Date / Time Unable to Assess Allergy Unverified 12/07/17 06:57 ROS unobtainable: due to endotracheal tube All Systems: The remainder of the systems were reviewed and are negative Physical Examination - Vital Signs Vital Signs: Initial Vital Signs Resp Pulse Ox 15 90 12/07/17 06:55 12/07/17 06:55 - Exam Exam: Limited neurological examination as currently patient is unresponsive to any verbal stimuli. Patient temperature is 96.5. Patient is without any sedation more than 3 hours Pupils are fixed and dilated No corneal reflexes No gag reflex No spontaneous breathing No oculocephalic response No withdrawal to the deep pain Eqyuivocal toes toes bilaterally Results - Laboratory Findings CBC and BMP: 12/07/17 07:08 12/07/17 15:00 Abnormal lab findings: Abnormal lab results WBC 16.9 K/mcL (4.3-11.1) H 12/07/17 07:08 Lymphocytes # 9.3 K/mcL (0.6-4.6) H 12/07/17 07:08 Reactive Lymphocytes Present (Not Present) A 12/07/17 07:08 APTT 41.7 Seconds (26.0-36.0) H 12/07/17 07:08 ABG pH 7.31 pH Units (7.32-7.45) L D 12/07/17 09:29 ABG pCO2 54 mmHg (35-45) H D 12/07/17 09:29 ABG pO2 64 mmHg (85-104) L 12/07/17 09:29 ABG Total CO2 29 mEq/L (20-26) H 12/07/17 09:29 ABG O2 Saturation 90 % (95-98) L 12/07/17 09:29 Carbon Dioxide 30 mEq/L (23-29) H 12/07/17 15:00 BUN 22 mg/dL (6-20) H 12/07/17 15:00 Creatinine 1.37 mg/dL (0.70-1.30) H 12/07/17 15:00 Est GFR (Non-Af Amer) 58 (> 60) L 12/07/17 15:00 Glucose 142 mg/dL (70-105) H 12/07/17 15:00 POC Glucose 136 mg/dL (70-99) H 12/07/17 17:34 Phosphorus 11.8 mg/dL (2.7-4.5) H 12/07/17 07:08 Magnesium 2.8 mg/dL (1.6-2.6) H 12/07/17 07:08 AST 75 Units/L (13-39) H 12/07/17 07:08 ALT 171 Units/L (7-52) H 12/07/17 07:08 Troponin I 0.36 ng/mL (< 0.04) H* 12/07/17 07:08 Urine Clarity Cloudy (Clear) A 12/07/17 08:52 Urine Protein >=300 mg/dL (Neg-Trace) H 12/07/17 08:52 Urine Glucose (UA) 100 mg/dL (Normal) H 12/07/17 08:52 Urine Blood Large (Negative) H 12/07/17 08:52 Urine Microscopic RBC 30-50 per hpf (0-3) H 12/07/17 08:52 Urine Microscopic WBC TNTC per hpf (0-3) H 12/07/17 08:52 Ur Squamous Epith Cells Many per lpf (None-Few) H 12/07/17 08:52 Hyaline Casts Moderate per lpf (None-Few) H 12/07/17 08:52 Salicylates < 2.5 mg/dL (15.0-30.0) L 12/07/17 07:48 Urine Opiates Screen Positive ng/mL ([id number]) H 12/07/17 08:43 Acetaminophen < 10 mcg/mL (10-20) L 12/07/17 07:48 - Diagnostic Findings Additional findings: CT scan of the head shows diffuse cerebral edema Stat EEG shows, no brain wave Activity, no seizure activity, no response to any external stimuli Consistent with severe anoxic/hypoxic encephalopathy Consult Discharge Plan - Plan Referrals: NONE,PCP [Primary Care Provider] -
--- NOTE | 2017-12-07 19:02 | EEG/EMG/Oth Biometrics Report ---
EEG Procedure Report EEG Procedure: Routine EEG Procedure Note: This is a 21 channel digital EEG performed utilizing 1020 electrode placement system on a patient who is intubated unresponsive and is been off sedation. Technical description Patient has no predominant cerebral activity, requiring reading at 3 Hz, there i s no true background activity recorded at the same time no evidence of any paroxysmal activity neither any changes with external stimuli. No obvious seizure activity was recorded During the recording there are few pulse artifact noted predominantly in the frontal leads Photic stimulation did not elicit any significant response Clinical interpretation Significantly abnormal electroencephalogram. This EEG did not show any background activity, neither any changes without any external stimuli this pattern could be seen in a patient with diffuse cerebral dysfunction as could be seen with severe anoxic brain injury, consistent with electrocerebral silence Clinical correlation is suggested
[2017-12-07] MEDS: Chlorhexidine Rinse 15 ML MOUTHWASH MM SCH (19:49)
[2017-12-08] MEDS: Norepinephrine 4 MG in D5% in Water 250 ML IVC SCH ×3 (00:39→08:56)
[2017-12-08] MEDS: Sodium Bicarbonate 150 MEQ in D5% in Water 1,000 ML IVC SCH (03:09)
[2017-12-08] MEDS: Artificial Tears SOLN 15 ML BOTTLE BOTH EYES SCH ×4 (03:15→15:36)
[2017-12-08 04:54] LABS: Basophils # 0.1 K/mcL (0.0-0.2); Basophils % 0.3 %; Eosinophils # 0.1 K/mcL (0.0-0.6); Eosinophils % 0.6 %; Hematocrit 50.8 % (37.5-50.1); Immature Granulocytes % 0.2 % (0-4); Lymphocytes # 1.7 K/mcL (0.6-4.6); Lymphocytes % 11.3 %; Mean Corpuscular HGB Conc 33.5 g/dL (31.6-35.5); Mean Corpuscular Hemoglobin 28.6 pg (28.0-33.3); Mean Corpuscular Volume 85.4 fL (83.0-100.0); Mean Platelet Volume 10.6 fL (9.4-12.4); Monocytes # 0.6 K/mcL (0.0-1.3); Monocytes % 3.7 %; Neutrophils # 12.6 K/mcL (1.6-8.9); Platelet Count 254 K/mcL (140-400); Red Blood Count 5.95 M/mcL (4.19-5.50); Red Cell Distribution Width 13.6 % (11.5-14.5); Segmented Neutrophils % 83.9 %
[2017-12-08 04:55] LABS: VBG Ionized Calcium 1.11 mmol/L (1.15-1.35)
[2017-12-08 05:20] LABS: BUN/Creatinine Ratio 19 (6-26); Blood Urea Nitrogen 24 mg/dL (6-20); Calcium 8.7 mg/dL (8.6-10.3); Carbon Dioxide 28 mEq/L (23-29); Chloride 117 mEq/L (98-107); Glucose 125 mg/dL (70-105); Magnesium 2.2 mg/dL (1.6-2.6); Osmolality,Calculated 314 (280-300); Potassium 3.5 mEq/L (3.5-5.1); Sodium 149 mEq/L (136-145); eGFR For Non-African Americans > 60 (> 60)
[2017-12-08 05:54] LABS: ABG Base Excess 0 mEq/L (-2 to 3); ABG HCO3 27 mEq/L (21-27); ABG Oxygen Saturation 94 % (95-98); ABG PCO2 49 mmHg (35-45); ABG PH 7.34 pH Units (7.32-7.45); ABG PO2 76 mmHg (85-104); ABG TCO2 28 mEq/L (20-26); Blood Gas Modality PRVC; Blood Gas PEEP 8 cm H2O; Blood Gas Respiration Rate 18; Blood Gas VT 400 cc
--- NOTE | 2017-12-08 07:38 | Pulmonology Progress Note ---
<Zaida Ma M - Last Filed: 12/08/17 09:04> Objective PUL Vital signs: Last Vital Signs Temp 96.0 F L 12/08/17 06:00 Pulse 89 12/08/17 06:00 Resp 18 12/08/17 07:22 BP 104/65 12/08/17 07:22 Pulse Ox 91 12/08/17 07:22 Ventilator Settings Ventilator Settings: Ventilator Settings, Last 8 Hours Ventilator Tidal Volume 400 Setting Ventilator Tidal Volume 400 Setting Ventilator Tidal Volume 400 Setting Ventilator Tidal Volume 400 Setting Ventilator Tidal Volume 400 Setting Ventilator Tidal Volume 400 Setting Ventilator Tidal Volume 400 Setting Ventilator Tidal Volume 400 Setting Ventilator Tidal Volume 400 Setting Ventilator Respiratory Rate 18 Setting Ventilator Respiratory Rate 18 Setting Ventilator Respiratory Rate 18 Setting Ventilator Respiratory Rate 18 Setting Ventilator Respiratory Rate 18 Setting Ventilator Respiratory Rate 18 Setting Ventilator Respiratory Rate 18 Setting Ventilator Respiratory Rate 18 Setting Ventilator Respiratory Rate 18 Setting Actual Respiratory Rate 18 Actual Respiratory Rate 18 Actual Respiratory Rate 18 Actual Respiratory Rate 18 Actual Respiratory Rate 18 Actual Respiratory Rate 18 Actual Respiratory Rate 18 Actual Respiratory Rate 18 Positive End Expiratory 8 Pressure Positive End Expiratory 5 Pressure Positive End Expiratory 8 Pressure Positive End Expiratory 5 Pressure Positive End Expiratory 5 Pressure Positive End Expiratory 8 Pressure Positive End Expiratory 5 Pressure Positive End Expiratory 5 Pressure Positive End Expiratory 8 Pressure Peak Inspiratory Airway 30 Pressure Peak Inspiratory Airway 28 Pressure Peak Inspiratory Airway 28 Pressure Peak Inspiratory Airway 30 Pressure Peak Inspiratory Airway 27 Pressure Peak Inspiratory Airway 28 Pressure Peak Inspiratory Airway 28 Pressure Peak Inspiratory Airway 29 Pressure Results - Laboratory Findings CBC and BMP: 12/08/17 04:35 12/08/17 04:35 ABG ABG pH 7.34 pH Units (7.32-7.45) 12/08/17 05:51 ABG pCO2 49 mmHg (35-45) H 12/08/17 05:51 ABG pO2 76 mmHg (85-104) L 12/08/17 05:51 ABG O2 Saturation 94 % (95-98) L 12/08/17 05:51 PT/INR, D-dimer PT 12.0 Seconds (9.4-12.1) 12/07/17 07:08 Abnormal lab findings: Abnormal lab results WBC 15.0 K/mcL (4.3-11.1) H 12/08/17 04:35 RBC 5.95 M/mcL (4.19-5.50) H 12/08/17 04:35 Hgb 17.0 g/dL (12.9-16.9) H D 12/08/17 04:35 Hct 50.8 % (37.5-50.1) H 12/08/17 04:35 Neutrophils # 12.6 K/mcL (1.6-8.9) H 12/08/17 04:35 Reactive Lymphocytes Present (Not Present) A 12/07/17 07:08 APTT 41.7 Seconds (26.0-36.0) H 12/07/17 07:08 ABG pCO2 49 mmHg (35-45) H 12/08/17 05:51 ABG pO2 76 mmHg (85-104) L 12/08/17 05:51 ABG Total CO2 28 mEq/L (20-26) H 12/08/17 05:51 ABG O2 Saturation 94 % (95-98) L 12/08/17 05:51 Sodium 149 mEq/L (136-145) H D 12/08/17 04:35 Chloride 117 mEq/L (98-107) H 12/08/17 04:35 BUN 24 mg/dL (6-20) H 12/08/17 04:35 Glucose 125 mg/dL (70-105) H 12/08/17 04:35 POC Glucose 100 mg/dL (70-99) H 12/08/17 06:00 Calculated Osmolality 314 (280-300) H 12/08/17 04:35 Venous Ioniz Calcium 1.11 mmol/L (1.15-1.35) L 12/08/17 04:50 Phosphorus 11.8 mg/dL (2.7-4.5) H 12/07/17 07:08 AST 75 Units/L (13-39) H 12/07/17 07:08 ALT 171 Units/L (7-52) H 12/07/17 07:08 Troponin I 0.36 ng/mL (< 0.04) H* 12/07/17 07:08 Urine Clarity Cloudy (Clear) A 12/07/17 08:52 Urine Protein >=300 mg/dL (Neg-Trace) H 12/07/17 08:52 Urine Glucose (UA) 100 mg/dL (Normal) H 12/07/17 08:52 Urine Blood Large (Negative) H 12/07/17 08:52 Urine Microscopic RBC 30-50 per hpf (0-3) H 12/07/17 08:52 Urine Microscopic WBC TNTC per hpf (0-3) H 12/07/17 08:52 Ur Squamous Epith Cells Many per lpf (None-Few) H 12/07/17 08:52 Hyaline Casts Moderate per lpf (None-Few) H 12/07/17 08:52 Salicylates < 2.5 mg/dL (15.0-30.0) L 12/07/17 07:48 Urine Opiates Screen Positive ng/mL (Lvjipy=171) H 12/07/17 08:43 Acetaminophen < 10 mcg/mL (10-20) L 12/07/17 07:48 - Clinical Findings Intake & Output: Intake & Output 12/07/17 12/08/17 12/08/17 23:59 07:59 15:59 Intake Total 2078 / 2078 1457 / 1457 226 / 226 Output Total 2049 / 2049 600 / 600 Balance 857 / 857 226 / 226 Consult Discharge Plan - Plan Referrals: NONE,PCP [Primary Care Provider] - - Attending Attestation I examined this patient and my medical decision-making was reviewed with the Resident Physician. I agree with the documented findings, disposition and treatment plan as described except to the extent set forth below. Patient seen and examined. Labs, radiology, chart personally reviewed. Agree with resident's history and physical, assessment, plan with following comments: YARN REWINDER: Patient does not follows commands, examination has not significantly changed and still there is no brainstem reflexes and reviewed neurology recommendations and evaluation and appreciate their input. Patient to have nuclear flow study and continue supportive care at this time. Family is aware of the poor prognosis. Pulmonary: Acceptable oxygenation and ventilation. Patient is requiring higher FiO2 and higher PEEP and also increase tidal volume to keep PCO2 in the low side because of the brain edema. Cardiovascular: Patient with neurogenic shock and on vasopressors. GI: Nutrition per dietary and GI prophylaxis per routine Heme: DVT prophylaxis per routine Renal; urine out put and renal funtion reviewed. Patient to be on mildly dry side with preferably mild hyponatremia because of the brain edema and also higher FiO2 and PEEP requirement. Endorcine: blood glucose is monitored Lines: all lines checked and no evidence of infections Skin: skin care to prevent pressure ulcers per nursing routine care Once patient has brain flow study I suspect he will be brain and organ do [place] team to discuss with the family. I spent 35 min of Critical Care time with this patient. It involved decision making of high complexity to assess, manipulate, and support vital organ system failure and/or to prevent further life threatening deterioration of the patient's condition. The time involved in the performance of separately reportable procedures was not counted toward critical care time. <Ryan Mckeon R - Last Filed: 12/08/17 09:55> Date of Encounter: 12/08/17 Time of Encounter: 07:15 Assessment and Plan (1) Brain edema Current Visit: Yes Status: Acute Patient remains unresponsive to verbal commands and pain stimuli. Patient is intubated and ventilated without sedation. Brainstem reflexes tested and absent. Head CT with findings consistent with generalized brain edema, loss of fraga- white differentiation, generalized swelling with small ventricles and sulci. Patient was found unresponsive at place of work with a needle in his arm, patient was unresponsive, and in asystole by BLS examination. Estimated down time prior to bystander initiated CPR is 15-20 minutes. Due to physical exam and imaging findings patient prognosis for meaningful neurologic recovery is poor. Patient did have evidence of seizure activity yesterday. Treated cerebral edema and seizure activity with propofol and mannitol, adjusting ventilatory settings to keep PCO2 low, elevate head of bed for reduced intracranial pressure. Patient has been off propofol since yesterday afternoon with no further evidence of seizure activity. Severe anoxic brain injury is quite likely in this patient, will obtain nuclear medicine brain perfusion study today with further recommendations pending findings. This imaging was held yesterday due to recent urine opiate positive screen as well as propofol use. Patient has now had adequate time to clear the se substances given appropriate renal and hepatic function. EEG done yesterday did not reveal evidence of brain activity and was consistent with electrocerebral silence Neurology consultated, have spoken with Dr. Sol and was present during his evaluation yesterday, appreciate neurology recommendations (2) Anoxic brain injury Current Visit: Yes Status: Acute Suspected anoxic brain injury based on history, physical findings, and EEG Neurology recommendations appreciated, will obtain nuclear medicine perfusion study this morning. Will likely involve organ transplant team if imaging is consistent with brain . Treatment plan as outlined above (3) Cardiorespiratory arrest Current Visit: Yes Status: Acute Patient was found unresponsive and bystander CPR was initiated. Downtime estimated to be 15-20 minutes. Patient was transported by [facility] EMS crew with Praveen device for CPR. Patient was intubated in the ED and given 1 amp of epinephrine. Subsequently patient was found to be in sinus tachycardia. At present patient is requiring intubation and ventilation. Patient remained on Levophed overnight, mean arterial pressure is decreasing will add Chiki-Synephrine and titrate as needed (4) Hypotension Current Visit: Yes Status: Acute Patient with persistent hypotension in the setting of recent cardiopulmonary arrest and neurologic injury. Patient is receiving fluid resuscitation as well as requiring vasopressor support with Levophed. We will continue the vasopressor support as necessary to maintain map of greater than 65 for organ perfusion. We will continue IV fluids at this time, suspect patient is hypovolemic. Will add Chiki-Synephrine for additional support and titrate as necessary. Qualifiers: Hypotension type: unspecified hypotension type Qualified Code(s): I95.9 - Hypotension, unspecified (5) Acidosis, metabolic Current Visit: Yes Status: Acute Patient with metabolic acidosis at presentation secondary to lactic acidosis due to cardiopulmonary arrest. ABG revealed pH of 6.88 as well as a lactate of greater than 10 and an anion gap of 18. Bicarbonate drip was started by the ED. PH by ABG is improving most recently 7.34. Have discontinued sodium bicarbonate. We will continue ventilation and fluid resuscitation for adequate oxygenation and organ perfusion (6) Hypernatremia Current Visit: Yes Status: Acute Hypernatremic today with a sodium of 149, additionally chloride is 117. Suspect the patient remains on the dry side we will continue maintenance fluid for organ protection Would like to keep patient on the side of hypernatremia to help with reduction of cerebral edema. (7) DVT prophylaxis Current Visit: Yes Status: Acute Will initiate mechanical prophylaxis with bilateral SCDs Subjective Principal diagnosis: anoxic brain injury Interval history: Patient remains intubated and ventilated without sedation. No change in clinical status. Patient is unresponsive to verbal and physical stimuli. Objective PUL Vital signs: Last Vital Signs Temp 96.0 F L 12/08/17 06:00 Pulse 89 12/08/17 06:00 Resp 18 12/08/17 06:00 BP 104/65 12/08/17 06:00 Pulse Ox 90 12/08/17 06:00 General appearance: no acute distress, other Eyes: nonicteric, other (Fixed and dilated) ENT: oropharynx moist, other (Endotracheal tube in place) Neck: supple, no lymphadenopathy Effort: other (Ventilated) Auscultation: bilateral: clear, diminished breath sounds Percussion: bilateral: not dull Cardiovascular: other (Tachycardic with regular rhythm) Gastrointestinal: hypoactive bowel sounds, soft, non-distended Integumentary: normal Extremities: no cyanosis, no edema, no clubbing Musculoskeletal: no deformities Gait: normal posture unable to assess due to mental status other (Unable to assess due to mental status) Ventilator Settings Ventilator Settings: Ventilator Settings, Last 8 Hours Ventilator Tidal Volume 400 Setting Ventilator Tidal Volume 400 Setting Ventilator Tidal Volume 400 Setting Ventilator Tidal Volume 400 Setting Ventilator Tidal Volume 400 Setting Ventilator Tidal Volume 400 Setting Ventilator Tidal Volume 400 Setting Ventilator Tidal Volume 400 Setting Ventilator Tidal Volume 400 Setting Ventilator Tidal Volume 400 Setting Ventilator Respiratory Rate 18 Setting Ventilator Respiratory Rate 18 Setting Ventilator Respiratory Rate 18 Setting Ventilator Respiratory Rate 18 Setting Ventilator Respiratory Rate 18 Setting Ventilator Respiratory Rate 18 Setting Ventilator Respiratory Rate 18 Setting Ventilator Respiratory Rate 18 Setting Ventilator Respiratory Rate 18 Setting Ventilator Respiratory Rate 18 Setting Actual Respiratory Rate 18 Actual Respiratory Rate 18 Actual Respiratory Rate 18 Actual Respiratory Rate 18 Actual Respiratory Rate 18 Actual Respiratory Rate 18 Actual Respiratory Rate 18 Actual Respiratory Rate 18 Actual Respiratory Rate 18 Positive End Expiratory 5 Pressure Positive End Expiratory 8 Pressure Positive End Expiratory 5 Pressure Positive End Expiratory 5 Pressure Positive End Expiratory 8 Pressure Positive End Expiratory 5 Pressure Positive End Expiratory 5 Pressure Positive End Expiratory 8 Pressure Positive End Expiratory 5 Pressure Positive End Expiratory 5 Pressure Peak Inspiratory Airway 28 Pressure Peak Inspiratory Airway 28 Pressure Peak Inspiratory Airway 30 Pressure Peak Inspiratory Airway 27 Pressure Peak Inspiratory Airway 28 Pressure Peak Inspiratory Airway 28 Pressure Peak Inspiratory Airway 29 Pressure Peak Inspiratory Airway 29 Pressure Peak Inspiratory Airway 28 Pressure Results - Laboratory Findings CBC and BMP: 12/08/17 04:35 12/08/17 04:35 ABG ABG pH 7.34 pH Units (7.32-7.45) 12/08/17 05:51 ABG pCO2 49 mmHg (35-45) H 12/08/17 05:51 ABG pO2 76 mmHg (85-104) L 12/08/17 05:51 ABG O2 Saturation 94 % (95-98) L 12/08/17 05:51 PT/INR, D-dimer PT 12.0 Seconds (9.4-12.1) 12/07/17 07:08 Abnormal lab findings: Abnormal lab results WBC 15.0 K/mcL (4.3-11.1) H 12/08/17 04:35 RBC 5.95 M/mcL (4.19-5.50) H 12/08/17 04:35 Hgb 17.0 g/dL (12.9-16.9) H D 12/08/17 04:35 Hct 50.8 % (37.5-50.1) H 12/08/17 04:35 Neutrophils # 12.6 K/mcL (1.6-8.9) H 12/08/17 04:35 Reactive Lymphocytes Present (Not Present) A 12/07/17 07:08 APTT 41.7 Seconds (26.0-36.0) H 12/07/17 07:08 ABG pCO2 49 mmHg (35-45) H 12/08/17 05:51 ABG pO2 76 mmHg (85-104) L 12/08/17 05:51 ABG Total CO2 28 mEq/L (20-26) H 12/08/17 05:51 ABG O2 Saturation 94 % (95-98) L 12/08/17 05:51 Sodium 149 mEq/L (136-145) H D 12/08/17 04:35 Chloride 117 mEq/L (98-107) H 12/08/17 04:35 BUN 24 mg/dL (6-20) H 12/08/17 04:35 Glucose 125 mg/dL (70-105) H 12/08/17 04:35 POC Glucose 100 mg/dL (70-99) H 12/08/17 06:00 Calculated Osmolality 314 (280-300) H 12/08/17 04:35 Venous Ioniz Calcium 1.11 mmol/L (1.15-1.35) L 12/08/17 04:50 Phosphorus 11.8 mg/dL (2.7-4.5) H 12/07/17 07:08 AST 75 Units/L (13-39) H 12/07/17 07:08 ALT 171 Units/L (7-52) H 12/07/17 07:08 Troponin I 0.36 ng/mL (< 0.04) H* 12/07/17 07:08 Urine Clarity Cloudy (Clear) A 12/07/17 08:52 Urine Protein >=300 mg/dL (Neg-Trace) H 12/07/17 08:52 Urine Glucose (UA) 100 mg/dL (Normal) H 12/07/17 08:52 Urine Blood Large (Negative) H 12/07/17 08:52 Urine Microscopic RBC 30-50 per hpf (0-3) H 12/07/17 08:52 Urine Microscopic WBC TNTC per hpf (0-3) H 12/07/17 08:52 Ur Squamous Epith Cells Many per lpf (None-Few) H 12/07/17 08:52 Hyaline Casts Moderate per lpf (None-Few) H 12/07/17 08:52 Salicylates < 2.5 mg/dL (15.0-30.0) L 12/07/17 07:48 Urine Opiates Screen Positive ng/mL (Tflawx=656) H 12/07/17 08:43 Acetaminophen < 10 mcg/mL (10-20) L 12/07/17 07:48 - Clinical Findings Intake & Output: Intake & Output 12/07/17 12/07/17 12/08/17 15:59 23:59 07:59 Intake Total 2616 / 2616 2078 / 2078 457 / 457 Output Total 2500 / 2500 2049 / 2049 600 / 600 Balance 116 / 116 29 / 29 -143 / -143 Weight 72 kg
[2017-12-08] MEDS ORDERED: Potassium Chloride Elixir 20 MEQ/15 ML UDC GTUBE ONE (07:40)
[2017-12-08] MEDS: Ipratropium/Albuterol Neb 3 ML IH SCH ×3 (07:59→15:12)
[2017-12-08] MEDS: Chlorhexidine Rinse 15 ML MOUTHWASH MM SCH (08:19)
[2017-12-08] MEDS: 0.9 % Sodium Chloride 1,000 ML IVC SCH (08:20)
[2017-12-08] MEDS ORDERED: Ringers Solution, Lactated 1,000 ML IVC SCH (08:45)
[2017-12-08] MEDS ORDERED: Pantoprazole 40 MG VIAL IVP SCH (09:00)
[2017-12-08] MEDS: Phenylephrine 10 MG in D5% in Water 250 ML IVC SCH ×2 (09:57→13:26)
[2017-12-08] MEDS ORDERED: Norepinephrine 8 MG in D5% in Water 500 ML IVC SCH (10:55)
--- NOTE | 2017-12-08 13:22 | Death Note ---
<Ryan Mckeon R - Last Filed: 12/08/17 13:20> Pronouncement Note - Date and Time of Date of : 12/08/17 Time of : 11:16 - PCOD Preliminary cause of : Cardiorespiratory arrest - Summary Additional details: Marvin is a 37-year-old male who suffered cardiopulmonary arrest on 12/07/2017 at approximately 6 AM. Reports state that patient was a recovering known drug addict and that he was found in the restroom of his place of work with a needle in his arm. Estimated down time is between 15 and 20 minutes before bystander CPR was initiated. Patient did receive ACLS resuscitation with return of heartbeat. Patient has remained ventilator dependent without spontaneous breathing. Since resuscitation patient clinical status has remained unchanged with fixed and dilated pupils, negative gag, corneal, and cold caloric reflex testing. Confounding factors have been corrected including his initial acid- base disturbance, hypothermia, hypotension, and urine toxicology without change in clinical or neurologic status. No response to verbal or pain stimuli. No spontaneous breathing. Based on clinical findings patient was suspected to have suffered severe anoxic brain injury resulting in brain . This diagnosis was confirmed by nuclear medicine perfusion study today. This confirmatory report was generated at 11:16 AM today 12/08/2017. This time will be used to generate time of as this is the time at which brain was confirmed. At that time patient was on cardiopulmonary support including intubation and mechanical ventilation as well as vasopressor support. - Additional Data Confirmation of : pupils fixed and dilated, other (Brain diagnosed by exam findings of apnea, negative corneal, gag, and cold caloric reflexes as well as fixed and dilated pupils. Brain confirmed nuclear medicine perfusion studies.) Family: at bedside Additional persons at bedside: other (Bedside nurse) Attending/PCP notified?: Yes Attending physician: Zaida Ma MD Was code activated?: No (Patient has suffered brain , no cardiopulmonary arrest at the time of ) Autopsy requested?: No plan examiner notified?: No Organ bank notified?: Yes Advance directives: No <Zaida Ma - Last Filed: 12/08/17 18:14> Pronouncement Note - Summary Additional details: I examined this patient and my medical decision-making was reviewed with the Resident Physician. I agree with the documented findings, disposition and treatment plan as described except to the extent set forth below. - Additional Data Attending physician: Zaida Ma MD
[2017-12-08] MEDS ORDERED: *HR* Norepinephrine 4 MG/4 ML VIAL IVC ONE (13:59)
[2017-12-08] MEDS ORDERED: *HR* EPINEPHrine 1 MG/10 ML SYRINGE IVP ONE (13:59)
--- NOTE | 2017-12-08 14:16 | Electrocardiograph Report ---
[address] [place], [place] [address] Test Date: 2017-12-07 Pat Name: Marvin Torrez Department: [id number] Room: 09 Gender: M Director [employer]: : 1980 Requested By: Zaida Ma Order Number: [id number] Reading MD: Keren Guerrero Measurements Intervals [place] Rate: 74 P: 71 MS: 182 QRS: 92 QRSD: 118 T: 67 QT: 425 QTc: 472 Interpretive Statements Sinus rhythm Incomplete right bundle branch block Abnrm T, consider ischemia, anterolateral lds Electronically Signed On 12-08-2017 14:14:58 EDT by Keren Guerrero
--- NOTE | 2017-12-08 14:20 | Death Note ---
<Ryan Mckeon R - Last Filed: 12/08/17 14:18> Discharge Sum: Summary - Date and Time Date of admission: 12/07/17 09:35 Date of : 12/08/17 Time of : 11:16 - Summary Details: See pronouncement note - Additional Data Confirmation of as documented by pronouncing clinician: pupils fixed and dilated, other (Brain as diagnosed by exam findings and confirmed by nuclear medicine perfusion study) Family: at bedside Additional persons at bedside: other (Bedside nurse) Attending/PCP notified?: Yes Attending physician: Zaida Ma MD Was code activated?: No Autopsy requested?: No textile examiner notified?: No Organ bank notified?: Yes Advance directives: No Hospice patient?: No Discharge Sum: Diag - PCOD Probable Cause of : Cardiorespiratory arrest Discharge Sum: Prov - Provider Primary care physician: PCP NONE Admitting clinician: Zaida Ma Attending physician on admission: Zaida Ma Consults: 12/07/17 11:14 Consult to Neurology [CONS] Routine Consulting Provider: [facility] Reason for Consult: unresponsive, cerebral edema Call Completed: Yes 12/07/17 16:49 Consult to Interpret Exam [CONS] Routine Consulting Provider: Jaida Sol I Consult to Interpret Exam: Interpret EEG Pronouncing clinician: Ryan Mckeon <Zaida Ma - Last Filed: 12/08/17 18:13> Discharge Sum: Summary - Date and Time Date of admission: 12/07/17 09:35 - Additional Data Attending physician: Zaida Ma MD Discharge Sum: Prov - Provider Primary care physician: PCP NONE Consults: 12/07/17 11:14 Consult to Neurology [CONS] Routine Consulting Provider: [facility] Reason for Consult: unresponsive, cerebral edema Call Completed: Yes 12/07/17 16:49 Consult to Interpret Exam [CONS] Routine Consulting Provider: Jaida Sol I Consult to Interpret Exam: Interpret EEG - Attending Attestation I examined this patient and my medical decision-making was reviewed with the Resident Physician. I agree with the documented findings, disposition and treatment plan as described except to the extent set forth below. This is very unfortunate man was admitted after cardiac arrest secondary to significant history of illicit drug abuse and he was evaluated by neurologist and with clinical examination consistent of brain with absence of any brain stem reflexes and then confirmed by additional testing of brain flow, he was declared and LOOP team followed up with family after that.
[2017-12-08 15:33] VITALS: BP 104/66
--- NOTE | 2017-12-10 17:14 | Electrocardiograph Report ---
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
== END 2017-12-08 11:16 | disposition expired | DRG 169 ==
LOC: EMEROOARM 06:55 → ICNU 09:35 → MERGE 09:35 → ICNU 11:08
PROVIDERS: ADMIT Internal Medicine Pulmonary Disease; ATTEND Internal Medicine Pulmonary Disease

== ENCOUNTER 2017-12-08 14:39 | Inpatient (IN) ==
[2017-12-08] MEDS: Norepinephrine 8 MG in D5% in Water 500 ML IVC SCH ×2 (15:30→20:14)
[2017-12-08] MEDS ORDERED: Artificial Tears SOLN 15 ML BOTTLE BOTH EYES PRN (15:55)
[2017-12-08] MEDS ORDERED: Ipratropium/Albuterol Neb 3 ML IH SCH (16:00)
[2017-12-08 17:57] LABS: ABG Base Excess -3 mEq/L (-2 to 3); ABG HCO3 26 mEq/L (21-27); ABG Oxygen Saturation 91 % (95-98); ABG PCO2 60 mmHg (35-45); ABG PH 7.24 pH Units (7.32-7.45); ABG PO2 72 mmHg (85-104); ABG TCO2 27 mEq/L (20-26); Blood Gas Modality AF; Blood Gas PEEP 8 cm H2O; Blood Gas Respiration Rate 21; Blood Gas VT 450 cc
[2017-12-08] MEDS: Ringers Solution, Lactated 1,000 ML IVC SCH ×2 (18:39→19:59)
[2017-12-08] MEDS: Artificial Tears SOLN 15 ML BOTTLE BOTH EYES SCH ×3 (18:39→23:15)
[2017-12-08] MEDS ORDERED: 0.9 % Sodium Chloride 500 ML ONE (18:40)
[2017-12-08] MEDS: Phenylephrine 10 MG in D5% in Water 250 ML IVC SCH ×2 (18:43→19:28)
[2017-12-08 18:58] LABS: Albumin 2.6 g/dL (3.5-5.7); Bilirubin,Direct 0.1 mg/dL (0.0-0.2); Bilirubin,Indirect 0.3 mg/dL (0.0-1.2); Bilirubin,Total 0.4 mg/dL (0.3-1.0); Calcium 8.1 mg/dL (8.6-10.3); Globulin 2.7 g/dL (2.4-3.5); Magnesium 1.7 mg/dL (1.6-2.6); Phosphorous 2.6 mg/dL (2.7-4.5); Potassium 3.5 mEq/L (3.5-5.1); Total Protein 5.3 g/dL (6.4-8.9)
[2017-12-08 19:01] LABS: Troponin I 1.63 ng/mL (< 0.04)
[2017-12-08 19:15] LABS: Bilirubin,Urine Negative (Negative); Blood,Urine Small (Negative); Clarity,Urine Cloudy (Clear); Color,Urine Yellow (Yellow); Glucose,Urine (UA) Normal (Normal); Ketones,Urine Negative (Negative); Leukocyte Esterase,Urine Trace (Negative); Nitrite,Urine Negative (Negative); Protein,Urine 30 mg/dL (Neg-Trace); Urobilinogen,Urine Normal (Normal)
[2017-12-08] MEDS ORDERED: *HR* Dextrose 50 % in Water (Syg) 50 ML SYRINGE IVP ONE (19:15)
[2017-12-08] MEDS ORDERED: Insulin Human Regular 20 UNIT in 0.9 % Sodium Chloride 10 ML IV ONE (19:18)
[2017-12-08] MEDS ORDERED: *HR* EPINEPHrine 1 MG/10 ML SYRINGE ONE (19:23)
[2017-12-08] MEDS ORDERED: *HR* EPINEPHrine 1 MG/10 ML SYRINGE IVP ONE (19:24)
[2017-12-08] MEDS: Vasopressin 40 UNIT in D5% in Water 100 ML IV SCH (19:29)
[2017-12-08] MEDS: Albuterol 2.5 MG/3 ML NEBULIZER IH SCH ×2 (19:48→23:35)
[2017-12-08 19:49] LABS: Basophils % 0.5 %; Eosinophils # 0.2 K/mcL (0.0-0.6); Eosinophils % 2.8 %; Hematocrit 50.4 % (37.5-50.1); Immature Granulocytes % 0.3 % (0-4); Lymphocytes # 3.1 K/mcL (0.6-4.6); Lymphocytes % 39.1 %; Mean Corpuscular HGB Conc 31.7 g/dL (31.6-35.5); Mean Corpuscular Hemoglobin 28.3 pg (28.0-33.3); Mean Corpuscular Volume 89.2 fL (83.0-100.0); Mean Platelet Volume 11.3 fL (9.4-12.4); Monocytes # 0.3 K/mcL (0.0-1.3); Monocytes % 4.3 %; Platelet Count 187 K/mcL (140-400); Red Blood Count 5.65 M/mcL (4.19-5.50); Red Cell Distribution Width 13.9 % (11.5-14.5)
[2017-12-08 19:51] LABS: Neutrophils # 4.2 K/mcL (1.6-8.9)
[2017-12-08] MEDS: Phenylephrine 20 MG in D5% in Water 500 ML IVC SCH ×2 (20:12→23:11)
[2017-12-08 20:15] LABS: INR 1.4; Prothrombin Time 15.5 Seconds (9.4-12.1)
[2017-12-08 20:18] LABS: Activated Partial Thrombo Time 28.7 Seconds (26.0-36.0)
[2017-12-08 20:30] LABS: ABG Base Excess -4 mEq/L (-2 to 3); ABG HCO3 24 mEq/L (21-27); ABG Oxygen Saturation 63 % (95-98); ABG PCO2 56 mmHg (35-45); ABG PH 7.24 pH Units (7.32-7.45); ABG PO2 39 mmHg (85-104); ABG TCO2 26 mEq/L (20-26); Blood Gas Modality PRVC; Blood Gas PEEP 10 cm H2O; Blood Gas Respiration Rate 22; Blood Gas VT 500 cc
[2017-12-08] MEDS ORDERED: WATER IVP SCH (20:30)
[2017-12-08] MEDS ORDERED: LEVOTHYROXINE SODIUM IVP SCH (20:30)
[2017-12-08] MEDS ORDERED: D5 IVP SCH (20:30)
[2017-12-08 20:33] LABS: Platelet Clumps Few (Not Present)
[2017-12-08] MEDS: Levothyroxine Sodium 100 MCG VIAL IVP ONE (20:42)
[2017-12-08] MEDS: D5 IVP SCH (20:50)
[2017-12-08] MEDS: LEVOTHYROXINE SODIUM IVP SCH (20:50)
[2017-12-08] MEDS: WATER IVP SCH (20:50)
[2017-12-08] MEDS ORDERED: Chlorhexidine Rinse 15 ML MOUTHWASH MM SCH (21:00)
--- NOTE | 2017-12-08 21:55 | Procedure Note ---
<Pro Jaimes - Last Filed: 12/08/17 21:52> Date of procedure: 12/08/17 Pre-op diagnosis: shock Post-op diagnosis: same Procedure: A time-out was completed verifying correct patient, procedure, site, positioning, and special equipment if applicable. The patients left groin was prepped and draped in sterile fashion. 1% Lidocaine was used to anesthetize the area. A 18G Arrow arterial line was introduced into the femoral artery. The catheter was threaded over the guide wire and the needle was removed with appropriate pulsatile blood return. The catheter was then sutured in place to the skin and a sterile dressing applied. Perfusion to the extremity distal to the point of catheter insertion was checked and found to be adequate. Anesthesia: GETA Surgeon: Pro Jaimes Was there an assistant professor of anthropology present: Yes Concierge: Ryan Mckeon Estimated blood loss (cc): 5 Specimen: none Pathology: none sent Condition: other (brain loop patient) Disposition: ICU <Ana Vásquez - Last Filed: 12/09/17 17:38> Procedure: I was not present during the procedure
[2017-12-08 22:07] LABS: VBG Ionized Calcium 1.17 mmol/L (1.15-1.35)
[2017-12-08 22:11] LABS: Calcium 7.8 mg/dL (8.6-10.3); Magnesium 1.5 mg/dL (1.6-2.6); Phosphorous 2.9 mg/dL (2.7-4.5); Potassium 3.2 mEq/L (3.5-5.1)
[2017-12-08] MEDS: 0.9 % Sodium Chloride w KCl 20 MEQ/1,000 ML MLS IVC SCH (22:32)
[2017-12-08] MEDS: 0.45 % Sodium Chloride w/KCl 20 MEQ/1,000 ML MLS IVC SCH (22:32)
[2017-12-08 22:33] LABS: Basophils % 0.5 %; Eosinophils # 0.1 K/mcL (0.0-0.6); Eosinophils % 3.4 %; Hemoglobin 15.4 g/dL (12.9-16.9); Lymphocytes # 1.4 K/mcL (0.6-4.6); Lymphocytes % 34.5 %; Mean Corpuscular HGB Conc 32.1 g/dL (31.6-35.5); Mean Corpuscular Hemoglobin 28.6 pg (28.0-33.3); Mean Corpuscular Volume 89.1 fL (83.0-100.0); Mean Platelet Volume 11.6 fL (9.4-12.4); Monocytes # 0.4 K/mcL (0.0-1.3); Monocytes % 9.7 %; Red Blood Count 5.39 M/mcL (4.19-5.50); Red Cell Distribution Width 13.9 % (11.5-14.5); Segmented Neutrophils % 51.9 %
[2017-12-08] MEDS ORDERED: Calcium Chloride 1,000 MG in 0.9 % Sodium Chloride 100 ML IVPB ONE (22:52)
[2017-12-08 23:03] LABS: Neutrophils # 2.1 K/mcL (1.6-8.9)
[2017-12-08 23:04] LABS: Platelet Count 103 K/mcL (140-400)
[2017-12-08 23:09] LABS: ABG Base Excess -6 mEq/L (-2 to 3); ABG HCO3 22 mEq/L (21-27); ABG Oxygen Saturation 88 % (95-98); ABG PCO2 54 mmHg (35-45); ABG PH 7.22 pH Units (7.32-7.45); ABG PO2 66 mmHg (85-104); ABG TCO2 24 mEq/L (20-26); Blood Gas Modality ASSIST CONTROL; Blood Gas PEEP 10 cm H2O; Blood Gas Respiration Rate 22; Blood Gas VT 500 cc
[2017-12-08] MEDS: Piperacillin/Tazobactam 3.375 GM in 0.9 % Sodium Chloride Mini Bag 100 ML IVPB SCH (23:29)
[2017-12-09] MEDS ORDERED: Piperacillin/Tazobactam 3.375 GM in 0.9 % Sodium Chloride Mini Bag 100 ML IVPB SCH
[2017-12-09 00:32] LABS: ABG Base Excess -5 mEq/L (-2 to 3); ABG HCO3 22 mEq/L (21-27); ABG Oxygen Saturation 98 % (95-98); ABG PCO2 47 mmHg (35-45); ABG PH 7.28 pH Units (7.32-7.45); ABG PO2 109 mmHg (85-104); ABG TCO2 23 mEq/L (20-26); Blood Gas Modality PRVC; Blood Gas PEEP 10 cm H2O; Blood Gas Respiration Rate 24; Blood Gas VT 500 cc
[2017-12-09] MEDS: Norepinephrine 8 MG in D5% in Water 500 ML IVC SCH (00:47)
[2017-12-09 02:11] LABS: VBG Ionized Calcium 1.43 mmol/L (1.15-1.35)
[2017-12-09 02:18] LABS: INR 1.5; Prothrombin Time 16.8 Seconds (9.4-12.1)
[2017-12-09 02:22] LABS: Activated Partial Thrombo Time 31.5 Seconds (26.0-36.0)
[2017-12-09 02:38] LABS: Troponin I 0.62 ng/mL (< 0.04)
[2017-12-09 02:56] LABS: Amylase 134 Units/L (29-103); Lipase 5 Units/L (11-82)
[2017-12-09 02:57] LABS: Alanine Aminotransferase 265 Units/L (7-52); Albumin 2.5 g/dL (3.5-5.7); Albumin/Globulin Ratio 0.9 (1.1-2.2); Alkaline Phosphatase 63 Units/L (34-104); Aspartate Amino Transferase 130 Units/L (13-39); BUN/Creatinine Ratio 13 (6-26); Bilirubin,Direct 0.3 mg/dL (0.0-0.2); Bilirubin,Indirect 0.3 mg/dL (0.0-1.2); Bilirubin,Total 0.6 mg/dL (0.3-1.0); Blood Urea Nitrogen 19 mg/dL (6-20); Calcium 9.9 mg/dL (8.6-10.3); Carbon Dioxide 20 mEq/L (23-29); Chloride 114 mEq/L (98-107); Cholesterol 89 mg/dL (< 200); Gamma Glutamyl Transpeptidase 54 Units/L (2-30); Globulin 2.7 g/dL (2.4-3.5); Glucose 146 mg/dL (70-105); Magnesium 2.1 mg/dL (1.6-2.6); Osmolality,Calculated 297 (280-300); Phosphorous 3.2 mg/dL (2.7-4.5); Potassium 3.5 mEq/L (3.5-5.1); Sodium 141 mEq/L (136-145); Total Protein 5.2 g/dL (6.4-8.9); eGFR For Non-African Americans 55 (> 60)
[2017-12-09] MEDS: Artificial Tears SOLN 15 ML BOTTLE BOTH EYES SCH ×6 (03:35→21:46)
[2017-12-09] MEDS: Albuterol 2.5 MG/3 ML NEBULIZER IH SCH ×5 (03:42→20:17)
[2017-12-09] MEDS: 0.9 % Sodium Chloride w KCl 20 MEQ/1,000 ML MLS IVC SCH ×3 (03:46→22:57)
[2017-12-09] MEDS: 0.45 % Sodium Chloride w/KCl 20 MEQ/1,000 ML MLS IVC SCH ×3 (03:46→19:38)
[2017-12-09 03:56] LABS: ABG Base Excess -4 mEq/L (-2 to 3); ABG HCO3 23 mEq/L (21-27); ABG Oxygen Saturation 100 % (95-98); ABG PCO2 44 mmHg (35-45); ABG PH 7.32 pH Units (7.32-7.45); ABG PO2 210 mmHg (85-104); ABG TCO2 24 mEq/L (20-26); Blood Gas Modality PRVC; Blood Gas PEEP 10 cm H2O; Blood Gas Respiration Rate 24; Blood Gas VT 500 cc
[2017-12-09 05:35] LABS: VBG Ionized Calcium 1.22 mmol/L (1.15-1.35)
[2017-12-09] MEDS: Piperacillin/Tazobactam 3.375 GM in 0.9 % Sodium Chloride Mini Bag 100 ML IVPB SCH ×3 (05:38→21:45)
[2017-12-09 05:56] LABS: BUN/Creatinine Ratio 15 (6-26); Blood Urea Nitrogen 21 mg/dL (6-20); Carbon Dioxide 20 mEq/L (23-29); Chloride 111 mEq/L (98-107); Glucose 197 mg/dL (70-105); Magnesium 1.8 mg/dL (1.6-2.6); Osmolality,Calculated 298 (280-300); Phosphorous 3.7 mg/dL (2.7-4.5); Potassium 4.2 mEq/L (3.5-5.1); Sodium 140 mEq/L (136-145); eGFR For Non-African Americans 57 (> 60)
[2017-12-09 06:08] LABS: ABG Base Excess -3 mEq/L (-2 to 3); ABG HCO3 23 mEq/L (21-27); ABG Oxygen Saturation 99 % (95-98); ABG PCO2 43 mmHg (35-45); ABG PH 7.33 pH Units (7.32-7.45); ABG PO2 160 mmHg (85-104); ABG TCO2 24 mEq/L (20-26); Blood Gas Modality PRVC; Blood Gas PEEP 10 cm H2O; Blood Gas Respiration Rate 24; Blood Gas VT 500 cc
[2017-12-09] MEDS: D5 IVP SCH ×2 (06:14→18:15)
[2017-12-09] MEDS: LEVOTHYROXINE SODIUM IVP SCH ×2 (06:14→18:15)
[2017-12-09] MEDS: WATER IVP SCH ×2 (06:14→18:15)
[2017-12-09] MEDS: Ringers Solution, Lactated 1,000 ML IVC SCH ×3 (08:09→22:27)
[2017-12-09 08:14] LABS: ABG Base Excess -3 mEq/L (-2 to 3); ABG HCO3 23 mEq/L (21-27); ABG Oxygen Saturation 99 % (95-98); ABG PCO2 44 mmHg (35-45); ABG PH 7.33 pH Units (7.32-7.45); ABG PO2 124 mmHg (85-104); ABG TCO2 25 mEq/L (20-26); Blood Gas Modality VC; Blood Gas PEEP 10 cm H2O; Blood Gas Respiration Rate 24; Blood Gas VT 500 cc
[2017-12-09 08:49] LABS: Hematocrit 41.1 % (37.5-50.1); Mean Corpuscular HGB Conc 32.8 g/dL (31.6-35.5); Mean Corpuscular Hemoglobin 28.4 pg (28.0-33.3); Mean Corpuscular Volume 86.3 fL (83.0-100.0); Mean Platelet Volume 11.4 fL (9.4-12.4); Platelet Count 138 K/mcL (140-400); Red Blood Count 4.76 M/mcL (4.19-5.50); Red Cell Distribution Width 13.6 % (11.5-14.5)
[2017-12-09 08:50] LABS: VBG Ionized Calcium 1.21 mmol/L (1.15-1.35)
[2017-12-09 08:54] LABS: Hemoglobin 13.5 g/dL (12.9-16.9)
[2017-12-09 08:59] LABS: INR 1.6; Prothrombin Time 18.1 Seconds (9.4-12.1)
[2017-12-09] MEDS ORDERED: Pantoprazole 40 MG VIAL IVP SCH (09:00)
[2017-12-09 09:02] LABS: Activated Partial Thrombo Time 34.7 Seconds (26.0-36.0)
[2017-12-09 09:05] LABS: Amylase 73 Units/L (29-103); Lipase 3 Units/L (11-82)
[2017-12-09 09:06] LABS: BUN/Creatinine Ratio 16 (6-26); Blood Urea Nitrogen 18 mg/dL (6-20); Calcium 7.4 mg/dL (8.6-10.3); Carbon Dioxide 19 mEq/L (23-29); Chloride 114 mEq/L (98-107); Glucose 224 mg/dL (70-105); Magnesium 1.5 mg/dL (1.6-2.6); Osmolality,Calculated 299 (280-300); Phosphorous 3.3 mg/dL (2.7-4.5); Potassium 3.9 mEq/L (3.5-5.1); Sodium 140 mEq/L (136-145); eGFR For Non-African Americans > 60 (> 60)
[2017-12-09 09:07] LABS: Albumin 2.5 g/dL (3.5-5.7); Albumin/Globulin Ratio 1.1 (1.1-2.2); Bilirubin,Direct 0.3 mg/dL (0.0-0.2); Bilirubin,Indirect 0.3 mg/dL (0.0-1.2); Bilirubin,Total 0.6 mg/dL (0.3-1.0); Globulin 2.3 g/dL (2.4-3.5); Total Protein 4.8 g/dL (6.4-8.9)
[2017-12-09 09:20] LABS: Troponin I 0.31 ng/mL (< 0.04)
[2017-12-09 09:21] LABS: Lymphocytes # 2.9 K/mcL (0.6-4.6); Monocytes # 0.5 K/mcL (0.0-1.3); Neutrophils # 8.6 K/mcL (1.6-8.9)
[2017-12-09 09:22] LABS: Platelet Estimate Normal (Normal)
[2017-12-09 09:38] LABS: Bilirubin,Urine Negative (Negative); Blood,Urine Trace (Negative); Color,Urine Yellow (Yellow); Glucose,Urine (UA) 250 mg/dL (Normal); Ketones,Urine Negative (Negative); Leukocyte Esterase,Urine Negative (Negative); Nitrite,Urine Negative (Negative); Protein,Urine Trace mg/dL (Neg-Trace); Specific Gravity,Urine 1.022 (1.010-1.025); Urobilinogen,Urine Normal (Normal)
[2017-12-09] MEDS ORDERED: Calcium Chloride 2,000 MG in 0.9 % Sodium Chloride 100 ML IVPB ONE (09:39)
[2017-12-09 09:40] LABS: RBC,Urine 0-3 per hpf (0-3); Squamous Epithelial Cell,Urine Many per lpf (None-Few); WBC,Urine 50-100 per hpf (0-3)
[2017-12-09 09:42] LABS: Clarity,Urine Hazy (Clear)
[2017-12-09] MEDS ORDERED: Furosemide 20 MG/2 ML VIAL IVP ONE (09:47)
[2017-12-09 09:55] LABS: Amorphous Sediment,Urine Moderate (Few); Granular Casts,Urine Moderate per lpf (None Seen)
[2017-12-09 09:56] LABS: Bacteria,Urine Moderate per hpf (None-Few)
[2017-12-09 11:29] LABS: Estimated Average Glucose 123 mg/dl; Hemoglobin A1C 5.9 %
[2017-12-09 11:55] LABS: ABG Base Excess -3 mEq/L (-2 to 3); ABG HCO3 23 mEq/L (21-27); ABG Oxygen Saturation 99 % (95-98); ABG PCO2 43 mmHg (35-45); ABG PH 7.34 pH Units (7.32-7.45); ABG PO2 131 mmHg (85-104); ABG TCO2 25 mEq/L (20-26); Blood Gas Modality VC; Blood Gas PEEP 10 cm H2O; Blood Gas Respiration Rate 24; Blood Gas VT 500 cc
[2017-12-09 12:56] LABS: VBG Ionized Calcium 1.19 mmol/L (1.15-1.35)
[2017-12-09 13:08] LABS: BUN/Creatinine Ratio 15 (6-26); Blood Urea Nitrogen 18 mg/dL (6-20); Calcium 8.4 mg/dL (8.6-10.3); Carbon Dioxide 20 mEq/L (23-29); Chloride 113 mEq/L (98-107); Glucose 246 mg/dL (70-105); Magnesium 1.7 mg/dL (1.6-2.6); Osmolality,Calculated 300 (280-300); Phosphorous 3.7 mg/dL (2.7-4.5); Potassium 3.8 mEq/L (3.5-5.1); Sodium 140 mEq/L (136-145); eGFR For Non-African Americans > 60 (> 60)
[2017-12-09] MEDS ORDERED: Furosemide 40 MG/4 ML VIAL IVP ONE (13:22)
[2017-12-09] MEDS ORDERED: Ringers Solution, Lactated 500 ML IVC ONE (13:25)
[2017-12-09] MEDS ORDERED: MANNITOL IVC ONE (13:45)
[2017-12-09] MEDS ORDERED: Nitroglycerin 1,000 MCG/10 ML VIAL IV ONE (14:25)
[2017-12-09] MEDS ORDERED: Verapamil 5 MG/2 ML VIAL ONE (14:25)
--- NOTE | 2017-12-09 15:02 | Pre-Sedation Evaluation ---
Pre-sedation evaluation - Pre-sedation checklist Date of procedure: 12/08/17 Procedure: [facility] Recent Vitals: Last Vital Signs Temp 98.3 F 12/09/17 13:00 Pulse 113 12/09/17 13:00 Resp 24 12/09/17 13:00 BP 110/55 12/09/17 13:00 Pulse Ox 97 12/09/17 13:00 H&P (including ROS) documented in medical record: Yes Dietary Status: unknown Airway Assessment: Patient can open mouth completely, TMJ function normal ASA Classification *see protocol: [id number] to any of the above to indicate emergent Plan of Care: Pt appropriate candidate for procedure/moderate/conscious sedation, If not NPO; Risk of intake outweiged by necessity to perform procedure Cardiac Registry (Cardio Only) - Functional Capacity Functional Capacity: Unknown - Clincal Frailty Scale Clinical Frailty Scale: Terminally Ill (loop - organ donation patient ())
--- NOTE | 2017-12-09 15:44 | Invasive Diagnostic Lab Proc ---
Name: Marvin Torrez Date of Study: 12/09/2017 Date: 1980 Ht: 66.1in Medical Record#: [id number] Age: 37 Wt: 160.94lb Gender: Male BSA: 1.83 Order #: [id number] BMI: 25.86 Physicians Procedure Physician: Ashwin Corea MD, [facility] Referring MD: Referring MD: Staff Name Position Time In Sites, Belinda RT (R) Monitor 03:06 PM Chasity Ramirez RT Scrub 03:06 PM Tommy Clarke RN Leave Specialist 03:06 PM Indications Indication transplant evaluation Procedures Performed Procedure R&L HRT ART/VENTRICLE ANGIO Pre-Procedure Checklist Informed consent is complete signed and on chart. H&P is on chart. ID band is on and ID verified with patient. Patient NPO for procedure The procedure was described for the patient and questions were answered. Blood Pressure: 126/68 ECG is on chart. Rhythm: NSR Plan of Care Patient will tolerate the procedure without complications. Adequate level of comfort will be maintained. Hemodynamics will remain stable Patient will recover from procedure without complications. Respiratory function will be maintained. Cardiac rhythm will remain stable. Patient temperature will be maintained. Patient and/or family have verbalized understanding of the procedure. Patient Education Chief Complaint/Reason for Test: Cardiac Cath Developmental Category: Adult (18-64 years) Developmentally Appropriate for Age: No Learning Barriers: Sedated Education Needs: Procedure Education Method: Verbal Information Taught: Cardiac Cath Educational Evaluation: Able to repeat information Intravenous Access Time IV Size Location DC'd Fluid/Drip Rate Units RN Triple Lumen Rt Femoral Tommy Clarke RN 18g 1 1/4" Patent On Arrival Rt Antecubital Tommy Clarke RN 18g 1 1/4" Patent On Arrival Lt Hand Tommy Clarke RN Central Line Lt Femoral Tommy Clarke RN Allergies No Known Allergies NKDA Vital Signs Time BP (mmHg) HR (bpm) O2 Sat. RR (bpm) LOC 126 / 68 97 98 % 16 03:01 PM 126 / 68 97 99 % 30 03:06 PM 116 / 71 97 98 % 24 03:11 PM 112 / 61 96 98 % 25 03:16 PM 112 / 60 95 98 % 19 03:21 PM 111 / 65 94 98 % 23 03:26 PM 109 / 67 94 98 % 19 ASA Classification: CLASS V- Morbid ompications, the operation is the only hope for survival (i.e. ruptured abd. aortic aneurysm) Joey Score Preprocedure Postprocedure Activity 0- Unable to move extremities or lift head Activity 0- Unable to move extremities or lift head Circulation 0- SBP +/= 50 points of pre-anesthetic level Circulation 0- SBP +/= 50 points of pre-anesthetic level Consciousness 0- Non-responsive Consciousness 0- Non-responsive O2 Saturation 1- Needs O2 inhalation to maintain O2 saturation of 90% O2 Saturation 1- Needs O2 inhalation to maintain O2 saturation of 90% Respiratory 0- Apneic requires ventilator or assisted respiration Respiratory 0- Apneic requires ventilator or assisted respiration Total Score 1 Total Score 1 Contrast Agent: Isovue Diagnostic Contrast: 16 ml Total Contrast: 16 ml Fluoro Dose: 1153 mGy Procedure Log Time Note Enter By 02:54 PM Recorded ECG: HR=99 Condition=Condition 1 02:56 PM CathStat 03:00 PM Vitals capture started with the following parameters, Patient=Adult, Interval=5 min, Initial Lrxeaele=147 mmHg, Deflation Rate=5 mmHg, Cuff placed on Right Arm 03:01 PM HR=97 bpm, FEKO=454/68 mmhg, SpO2=99.0 %, Resp=30 B/min 03:06 PM Pt arrived to rn labor and delivery 2 at 15:06 cedwards 03:06 PM Belinda Herring RT (R) Position: Monitor Time in: 15:06 cedwards 03:06 PM Chasity Ramirez RT Position: Scrub Time in: 15:06 cedwards 03:06 PM HR=97 bpm, ACIE=353/71 mmhg, SpO2=98 %, Resp=24 B/min 03:06 PM Tommy Clarke RN Position: Leave Specialist Time in: 15:06 cedwards 03:06 PM Patient charges- Angio tray pack, Navilyst 3mm J, Pulse Oximetry and ACIST tubing and transducer cedwards 03:06 PM Case Delayed No cedwards 03:06 PM Physician arrived 15:06 cedwards 03:06 PM Rivera and claudia completed cedwards 03:06 PM Sign in performed according to hospital policy. Informed consent was obtained. cedwards 03:06 PM Procedure start 15:06 cedwards 03:08 PM Time out was performed according to hospital policy. Conscious sedation and anesthesia was achieved (see medication log with in this report above) cedwards 03:08 PM lt a line exchanged out for 5 fr sheath tsites 03:09 PM Sheath exchanged for a 5 Fr 11 cm Terumo [place] sheath [id number] tsites 03:09 PM Micro-Introducer Kit utilized for sheath placement tsites 03:11 PM 5Fr FL 4 catheter inserted over the wire DN tsites 03:11 PM 0.035 145cm Navilyst 3mmJ wire [id number] tsites 03:11 PM HR=96 bpm, YDMQ=714/61 mmhg, SpO2=98.0 %, Resp=25 B/min 03:11 PM Recorded Pressure: Ao, HR=96, Condition=Condition 1 (Aorta) Ao 119/69/87 03:11 PM LCA angiography performed in multiple views. tsites 03:12 PM wire reinserted catheter removed tsites 03:13 PM 5Fr FR 4 catheter inserted over the wire DN tsites 03:14 PM RCA angiography performed in multiple views. tsites 03:14 PM wire reinserted catheter removed tsites 03:14 PM 5Fr Pigtail catheter inserted over the wire DN tsites 03:14 PM Catheter crossed the aortic valve and was selectively placed in the left ventricle. Pressures recorded on pullback for left heart catheterization. tsites 03:15 PM Pressure channel 1 zeroed. 03:15 PM Recorded Pressure: LV, HR=95, Condition=Condition 1 (Left Ventricle) LV 102/-2/8 03:16 PM Recorded Pressure: LV, Ao, HR=95, Condition=Condition 1 (Left Ventricle) LV 102/-3/7, (Aorta) Ao 94/51/72 03:16 PM HR=95 bpm, FGAB=802/60 mmhg, SpO2=98 %, Resp=19 B/min 03:17 PM Access obtained by percutaneous puncture. 7Fr 11cm Cordis Barbara sheath placed in left Femoral vein. [id number] tsites 03:17 PM 7 F Clarke [employer] Revillo-Bryant 'S' tip inserted through venous sheath tsites 03:18 PM Catheter removed tsites 03:18 PM Wire removed tsites 03:18 PM .014 Prowater 180cm guide wire across target lesion- successful. reused? No tsites 03:19 PM Guide wire removed intact. tsites 03:19 PM Recorded Pressure: PCW, HR=95, Condition=Condition 1 (Pulmonary Capillary Wedge) PCW 03:19 PM Recorded Pressure: MPA, HR=96, Condition=Condition 1 (Main Pulmonary Artery) MPA 03:20 PM Thermo CO: CO=7.1 l/m, HR=94 bpm, Condition=Condition 1. Used in calculation. Equipment: Description and Size=SWAN 7FR, Type=Bath Probe, CC=0.578 Injectant: Temp=19.0 - 22.0 Celsius, Volume=10.0 ml 03:21 PM Thermo CO: CO=9.4 l/m, HR=94 bpm, Condition=Condition 1. Used in calculation. Equipment: Description and Size=SWAN 7FR, Type=Bath Probe, CC=0.578 Injectant: Temp=19.0 - 22.0 Celsius, Volume=10.0 ml 03:21 PM Thermo CO: CO=5.4 l/m, HR=94 bpm, Condition=Condition 1. Used in calculation. Equipment: Description and Size=SWAN 7FR, Type=Bath Probe, CC=0.578 Injectant: Temp=19.0 - 22.0 Celsius, Volume=10.0 ml 03:21 PM HR=94 bpm, AHAX=252/65 mmhg, SpO2=98 %, Resp=23 B/min 03:21 PM Thermo CO: CO=6.9 l/m, HR=93 bpm, Condition=Condition 1. Used in calculation. Equipment: Description and Size=SWAN 7FR, Type=Bath Probe, CC=0.578 Injectant: Temp=19.0 - 22.0 Celsius, Volume=10.0 ml 03:22 PM Thermo CO in process. 03:22 PM Recorded Pressure: MPA, HR=94, Condition=Condition 1 (Main Pulmonary Artery) MPA 38 03:23 PM Pressure channel 1 zeroed. 03:23 PM Recorded Pressure: MPA, HR=94, Condition=Condition 1 (Main Pulmonary Artery) MPA 03:23 PM Recorded Pressure: RV, HR=90, Condition=Condition 1 (Right Ventricle) RV 03:23 PM Recorded Pressure: RA, HR=94, Condition=Condition 1 (Right Atrium) RA 03:24 PM Saturation: Site=RA (Right Atrium) , O2=88.7 %, Condition=Condition 1. Used in calculation. 03:25 PM Right heart hemodynamics, O2 saturations and Cardiac Outputs obtained. tsites 03:25 PM Revillo-Bryant catheter removed with balloon intact tsites 03:26 PM Saturation: Site=PA (Pulmonary Artery) , O2=88.7 %, Condition=Condition 1. Used in calculation. 03:26 PM HR=94 bpm, BFIB=232/67 mmhg, SpO2=98 %, Resp=19 B/min 03:27 PM Procedure completed at 15:27 12/09/2017 tsites 03:27 PM Did you address MARISELA flow and Dominance? No tsites 03:28 PM Sign out completed: Radiation Dose 89 mGy, 1153 cGy/cm2 Fluoro Time: 2.2 Isovue 370 - 200ml contrast 15.5 ml given by Ashwin Corea MD, FACC. Complications: None. The patient was discharged out of the cardiac cath lab manager in stable condition. Cardiac Rehab Consult needed: NoConfirmed administered medications: Yes tsites 03:31 PM Isovue 370 - 200ml,1 Bottle(s) used. tsites 03:31 PM Sheath left in place to be pulled on floor/holding areaV+Pad tsites 03:31 PM Estimated Blood Loss: minimal tsites 03:31 PM Post ECG NSR tsites 03:31 PM Post Blood Pressure 109/63 tsites 03:31 PM 15:31 Post Pulses Bilateral DP & PT 2+ tsites 03:31 PM Information taught Cardiac Cath tsites 03:32 PM Education needs Procedure, Plan of Care, and Responsibilities of Patient in Care tsites 03:32 PM Learning barriers : tsites 03:32 PM Education Methods Verbal tsites 03:32 PM Education evaluation Able to repeat information tsites 03:32 PM Site status No bleeding/hematoma - Lt Groin as reported by Chasity Ramirez RT at 15:32 tsites 03:32 PM Opsite applied tsites 03:32 PM Report given to rachid MATAMOROS Pt taken to ICU Room #9. 15:32 tsites 03:32 PM Delay to floor No tsites 03:32 PM Patient out of room: 15:32 tsites Complications Complication None Hemodynamics Pressures Site Systolic/A Wave Diastolic/V Wave Mean AO 119 69 87 LV 102 -2 8 LV 102 -3 7 AO 94 51 72 PCW 11 9 8 MPA 36 19 26 MPA 38 19 26 MPA 35 20 26 RV 35 5 8 RA 9 8 7 Oximetry Site Saturation RA 88.7 RA 88.7 PA 88.7 PA 88.7 Post Procedure Information Blood Pressure: 109/63 mmHg Rhythm: NSR Post procedural instructions were given Closure Device Time Device Success/Fail 12/09/2017 3:33:00 PM Manual Compression Site Checks Time Location Status Staff Sheath In? Note 03:32 PM Lt Groin No bleeding/hematoma Chasity Ramirez RT Pulses Time Site Pre-Procedure Post-Procedure Note Bilateral DP & PT 2+ 3:31:00 PM Bilateral DP & PT 2+ Updated by Belinda Nima RT (R) on 12/09/2017 3:35:55 PM Belinda Herring RT electronically signed on 12/09/2017 3:37:28 PM with status of Final
[2017-12-09 16:08] LABS: ABG Base Excess -4 mEq/L (-2 to 3); ABG HCO3 23 mEq/L (21-27); ABG Oxygen Saturation 100 % (95-98); ABG PCO2 47 mmHg (35-45); ABG PO2 229 mmHg (85-104); ABG TCO2 25 mEq/L (20-26); Blood Gas Modality VC; Blood Gas PEEP 10 cm H2O; Blood Gas Respiration Rate 24; Blood Gas VT 500 cc
[2017-12-09 16:51] LABS: VBG Ionized Calcium 1.33 mmol/L (1.15-1.35)
[2017-12-09 17:12] LABS: Hematocrit 43.1 % (37.5-50.1); Hemoglobin 14.3 g/dL (12.9-16.9); Mean Corpuscular HGB Conc 33.2 g/dL (31.6-35.5); Mean Corpuscular Hemoglobin 28.3 pg (28.0-33.3); Mean Corpuscular Volume 85.2 fL (83.0-100.0); Mean Platelet Volume 11.6 fL (9.4-12.4); Platelet Count 137 K/mcL (140-400); Red Blood Count 5.06 M/mcL (4.19-5.50); Red Cell Distribution Width 13.7 % (11.5-14.5)
[2017-12-09 17:16] LABS: Alanine Aminotransferase 229 Units/L (7-52); Alkaline Phosphatase 62 Units/L (34-104); Amylase 51 Units/L (29-103); Aspartate Amino Transferase 75 Units/L (13-39); BUN/Creatinine Ratio 14 (6-26); Bilirubin,Direct 0.3 mg/dL (0.0-0.2); Bilirubin,Indirect 0.3 mg/dL (0.0-1.2); Bilirubin,Total 0.6 mg/dL (0.3-1.0); Blood Urea Nitrogen 22 mg/dL (6-20); Calcium 9.7 mg/dL (8.6-10.3); Carbon Dioxide 21 mEq/L (23-29); Chloride 105 mEq/L (98-107); Cholesterol 94 mg/dL (< 200); Creatine Kinase 454 Units/L (30-223); Gamma Glutamyl Transpeptidase 51 Units/L (2-30); Globulin 3.1 g/dL (2.4-3.5); Glucose 352 mg/dL (70-105); Lactate Dehydrogenase 220 Units/L (140-271); Lipase < 3 Units/L (11-82); Magnesium 2.5 mg/dL (1.6-2.6); Osmolality,Calculated 303 (280-300); Phosphorous 4.7 mg/dL (2.7-4.5); Potassium 4.7 mEq/L (3.5-5.1); Sodium 138 mEq/L (136-145); Total Protein 6.1 g/dL (6.4-8.9); Troponin I 0.29 ng/mL (< 0.04); eGFR For Non-African Americans 50 (> 60)
[2017-12-09 17:18] LABS: INR 1.3; Prothrombin Time 14.7 Seconds (9.4-12.1)
[2017-12-09 17:20] LABS: Activated Partial Thrombo Time 31.5 Seconds (26.0-36.0)
[2017-12-09 17:29] LABS: ABG Base Excess -5 mEq/L (-2 to 3); ABG HCO3 20 mEq/L (21-27); ABG Oxygen Saturation 99 % (95-98); ABG PCO2 37 mmHg (35-45); ABG PH 7.34 pH Units (7.32-7.45); ABG PO2 164 mmHg (85-104); ABG TCO2 21 mEq/L (20-26); Blood Gas Modality VC; Blood Gas PEEP 10 cm H2O; Blood Gas Respiration Rate 28; Blood Gas VT 500 cc
[2017-12-09 17:52] LABS: Lymphocytes # 0.3 K/mcL (0.6-4.6); Monocytes # 0.3 K/mcL (0.0-1.3); Neutrophils # 11.8 K/mcL (1.6-8.9)
[2017-12-09 17:53] LABS: Platelet Estimate Slight Decrease (Normal)
[2017-12-09] MEDS ORDERED: 0.9 % Sodium Chloride 1,000 ML IVC ONE (17:55)
[2017-12-09] MEDS ORDERED: Insulin Human Regular 10 UNIT in 0.9 % Sodium Chloride 10 ML IV ONE (17:55)
[2017-12-09] MEDS: Vasopressin 40 UNIT in D5% in Water 100 ML IV SCH (18:22)
[2017-12-09 21:39] LABS: ABG Base Excess 1 mEq/L (-2 to 3); ABG HCO3 24 mEq/L (21-27); ABG Oxygen Saturation 100 % (95-98); ABG PCO2 33 mmHg (35-45); ABG PH 7.47 pH Units (7.32-7.45); ABG PO2 227 mmHg (85-104); ABG TCO2 25 mEq/L (20-26); Blood Gas Modality ASSIST CONTROL; Blood Gas PEEP 10 cm H2O; Blood Gas Respiration Rate 28; Blood Gas VT 500 cc
[2017-12-09 21:55] LABS: Hematocrit 36.9 % (37.5-50.1); Mean Corpuscular HGB Conc 33.6 g/dL (31.6-35.5); Mean Corpuscular Hemoglobin 28.3 pg (28.0-33.3); Mean Corpuscular Volume 84.2 fL (83.0-100.0); Mean Platelet Volume 11.6 fL (9.4-12.4); Platelet Count 132 K/mcL (140-400); Red Blood Count 4.38 M/mcL (4.19-5.50); Red Cell Distribution Width 13.4 % (11.5-14.5)
[2017-12-09 21:58] LABS: Hemoglobin 12.4 g/dL (12.9-16.9)
[2017-12-09 22:02] LABS: INR 1.3; Prothrombin Time 14.9 Seconds (9.4-12.1)
[2017-12-09 22:05] LABS: Activated Partial Thrombo Time 33.4 Seconds (26.0-36.0)
[2017-12-09 22:10] LABS: Calcium 9.7 mg/dL (8.6-10.3); Magnesium 2.3 mg/dL (1.6-2.6); Phosphorous 2.3 mg/dL (2.7-4.5)
[2017-12-09 22:12] LABS: Albumin 3.2 g/dL (3.5-5.7); Albumin/Globulin Ratio 1.2 (1.1-2.2); Bilirubin,Direct 0.3 mg/dL (0.0-0.2); Bilirubin,Indirect 0.3 mg/dL (0.0-1.2); Bilirubin,Total 0.6 mg/dL (0.3-1.0); Globulin 2.6 g/dL (2.4-3.5); Total Protein 5.8 g/dL (6.4-8.9)
[2017-12-09 22:14] LABS: Troponin I 0.34 ng/mL (< 0.04)
[2017-12-09 22:15] LABS: Neutrophils # 10.6 K/mcL (1.6-8.9)
[2017-12-09 22:16] LABS: Platelet Estimate Slight Decrease (Normal)
[2017-12-09] MEDS ORDERED: Insulin Human Regular 20 UNIT in 0.9 % Sodium Chloride 10 ML IV ONE (22:21)
[2017-12-09 23:13] VITALS: BP 106/59
--- NOTE | 2017-12-09 23:39 | Anesthesia Evaluation PreOp ---
Date of Encounter: 12/09/17 Time of Encounter: 23:37 - Past History Planned Operation: Organ procurement Cardiac History: Other (Indications: transplant evaluation Other Impressions: Coronary arteries are angiographically normal. There is no pulmonary hypertension. Normal cardiac output, shunt run, high normal pulmonary pressures Minimal contrast for RONDA risk reduction (16cc)) Pulmonary History: Smoker Other Medical History: Hepatic (hep c), Other (overdose) Anesthesia History: Past Anesthesia (unknown) Alcohol Use: none Drug use: IV Drug Use Medications and Allergies RX: No Known Home Drugs 04/28/16 [History] Allergy/AdvReac Type Severity Reaction Status Date / Time No Known Allergies Allergy Verified 04/24/17 12:17 - Meds/Allergy Pre-op Review Medications Reviewed: Yes Allergies Reviewed: Yes Anesthesia Results - Labs 12/09/17 21:35 12/09/17 21:35 Laboratory Tests 12/09/17 12/09/17 21:34 21:35 PT 14.9 H INR 1.3 APTT 33.4 ABG pH 7.47 H D ABG pCO2 33 L ABG pO2 227 H D ABG HCO3 24 ABG Total CO2 25 - Imaging EKG: report reviewed (sinus tachycardia) Chest x-ray: report reviewed ( FINDINGS: Lines and tubes remain in place. Mild patchy airspace opacities bilaterally, improved. Stable pulmonary vascular congestion. Small bilateral pleural effusions, stable on the right, but improved on the left. No new airspace disease. No pneumothoraces. Cardiac and mediastinal silhouettes are stable. Stable appearance to bony structures. XR/XR chest 1V portable IMPRESSION: Mild patchy airspace opacities bilaterally, improved. These may be on the basis of improving multifocal infiltrates or pulmonary edema. Stable mild pulmonary vascular congestion. Small bilateral pleural effusions, stable on the right, but improved on the left. D/ / 12/09/2017 09:24:43 Kiran Brumfield MD / earjen) Additional studies: Indications: LOOP Evaluation No significant valvular dysfunction. Left Ventricular Wall Motion: Rest Echo Findings All wall segments showed normal motion. Findings: Study Quality * Technically sub-optimal due to clinical status. ECG Findings * Sinus tachycardia. Heart rate 110s. Left Ventricle * LVEF 65%. * Normal LV chamber size, wall thickness and function. * Probable normal left ventricular diastolic function. Right Ventricle * Normal right ventricular structure and function. Left Atrium * Normal left atrial size. Right Atrium * Normal right atrial size. Interatrial Septum * Interatrial septum not well evaluated. Aortic Valve * Aortic valve not well visualized. Grossly appears trileaflet. * No aortic regurgitation. * No aortic stenosis. Mitral Valve * Normal mitral valve structure and function. * No mitral regurgitation. * No mitral stenosis. Tricuspid Valve * Normal tricuspid valve structure and function. * Trace tricuspid regurgitation. * No evidence of pulmonary hypertension. Pulmonic Valve * Pulmonic valve not well visualized. Grossly normal appearance. * No pulmonic regurgitation. Aorta * Normally sized aortic root. Pericardium * The pericardium appears normal. IVC * The IVC is not dilated. Pulmonary Artery * Normal visualized portions of the main pulmonary artery. Anesthesia Exam Vital Signs/O2 Sat, Most Current Temp Pulse Resp BP Pulse Ox 97.7 F 102 28 106/59 100 12/09/17 23:00 12/09/17 23:00 12/09/17 23:00 12/09/17 23:00 12/09/17 23:00 Weight: 73kg - HEENT Mallampati: Intubated - Cardiac Rhythm: Regular Anesthesia Assess/Plan ASA Score: 6 Anesthetic Plan: General (Anes consent is implied, will follow organ procurement protocol) Monitoring Plan: Standard Monitors
[2017-12-10] MEDS: Albuterol 2.5 MG/3 ML NEBULIZER IH SCH ×2 (00:15→03:42)
[2017-12-10] MEDS ORDERED: *HR* PHENYLEPHRINE 1,000 MCG/10 ML SYRINGE IVP ONE (00:56)
--- NOTE | 2017-12-13 15:33 | Electrocardiograph Report ---
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
== END 2017-12-09 23:50 | disposition expired | DRG 81 ==
LOC: ICNU 17:16
PROVIDERS: ADMIT Internal Medicine Pulmonary Disease; ATTEND Internal Medicine Pulmonary Disease